=== PATIENT | male | born 1960 | race Caucasian/White ===

== ENCOUNTER 2017-12-16 06:55 | Inpatient (IN) ==
[2017-12-11 16:39] LABS: Basophils % 0.7 % (0.0-0.8); Eosinophils # 0.3 10*3/uL (0.0-0.87); Eosinophils % 4.8 % (0.00-10.9); Hematocrit 37.1 VOL% (42.0-52.0); Hemoglobin 12.7 GM/DL (14.0-18.0); Immature Granulocytes % 0.4 %; Immature Granulocytes Absolute 0.02 #; Lymphocytes # 1.3 10*3/uL (1.4-4.0); Lymphocytes % 23.6 % (21.2-54.2); Mean Corpuscular HGB Conc 34.2 GM/DL (32-36); Mean Corpuscular Hemoglobin 29 PG (27-34); Mean Corpuscular Volume 84.7 FL (87-102); Mean Platelet Volume 11.5 FL (9.6-12.0); Monocytes # 0.5 10*3/uL (0.11-0.8); Monocytes % 8.9 % (1.7-12.7); Neutrophils # 3.3 10*3/uL (1.4-7.4); Neutrophils % 61.6 % (38.7-73.9); Platelet Count 186 T/CUMM (130-400); Red Blood Count 4.38 MC/CUMM (3.8-5.5); Red Cell Distribution Width 15.3 % (9.3-17.3); White Blood Count 5.4 T/CUMM (4-12)
[2017-12-11 16:50] LABS: Albumin 4.1 G/DL (3.4-5.0); Bilirubin,Total 0.6 MG/DL (0.2-1.0); Calcium 9.4 MG/DL (8.5-10.1); Osmolality,Calculated 273.8 MOS/KG (273-304); Potassium 4.4 MMOL/L (3.5-5.1); Total Protein 7.8 G/DL (6.4-8.3)
[~2017-12-16 06:55] MED LIST: ceFAZolin 1,000 MG in SYRINGE 1 EACH IV ONE
[2017-12-16] MEDS ORDERED: DIAZEPAM 5 MG TABLET PO ONE (08:01)
[2017-12-16] MEDS ORDERED: FAMOTIDINE 20 MG TABLET PO ONE (08:01)
[2017-12-16] MEDS ORDERED: ceFAZolin 1,000 MG VIAL ONE (08:12)
[2017-12-16] MEDS ORDERED: DIAZEPAM 5 MG TABLET ONE (08:13)
[2017-12-16] MEDS ORDERED: FAMOTIDINE 20 MG TABLET ONE (08:13)
[2017-12-16] MEDS: LACTATED RINGERS 1,000 ML IV SCH ×3 (08:34→17:27)
[2017-12-16] MEDS ORDERED: HEPARIN 5,000 UNIT/1 ML VIAL ONE (09:27)
[2017-12-16] MEDS ORDERED: LIDOCAINE 1% 20 ML VIAL ONE (09:27)
[2017-12-16] MEDS ORDERED: THROMBIN TOPICAL (RECOMBINANT) 5,000 UNIT VIAL TOP ONE (09:27)
[2017-12-16] MEDS ORDERED: HYDROmorphone 2 MG/1 ML VIAL IV PRN (12:19)
[2017-12-16] MEDS ORDERED: ONDANSETRON 4 MG/2 ML VIAL IV PRN (12:19)
[2017-12-16] MEDS ORDERED: fentaNYL 100 MCG/2 ML VIAL ONE (12:37)
[2017-12-16] MEDS ORDERED: MIDAZOLAM 2 MG/2 ML VIAL ONE (12:37)
[2017-12-16] MEDS ORDERED: ONDANSETRON 4 MG/2 ML VIAL ONE (12:37)
[2017-12-16] MEDS ORDERED: SEVOFLURANE 1 UNIT/15 MINUTE INH ONE (12:37)
[2017-12-16] MEDS ORDERED: LIDOCAINE 1% 5 ML VIAL ONE (12:37)
[2017-12-16] MEDS ORDERED: PROPOFOL 200 MG/20 ML VIAL IV ONE (12:37)
[2017-12-16] MEDS ORDERED: ACETAMINOPHEN 1,000 MG/100 ML VIAL IV ONE (12:38)
[2017-12-16] MEDS ORDERED: ROCURONIUM 100 MG/10 ML VIAL IV ONE (12:38)
[2017-12-16] MEDS ORDERED: GLYCOPYRROLATE 0.4 MG/2 ML VIAL ONE (12:38)
[2017-12-16] MEDS ORDERED: hydrALAZINE 20 MG/1 ML VIAL ONE (12:49)
[2017-12-16] MEDS ORDERED: hydrALAZINE 20 MG/1 ML VIAL IV ONE (12:54)
[2017-12-16 14:47] LABS: Apearance,Urine CLEAR (Clear); Bilirubin,Urine Negative (Negative); Blood, Urine Negative (Negative); Glucose,Urine (UA) Negative (Negative); Hyaline Casts,Urine 3 /LPF (0-3); Ketones,Urine Negative (Negative); Mucus,Urine Moderate /LPF (Occasional); Nitrite,Urine Negative (Negative); Protein,Urine Negative; RBC,Urine 1 /HPF (0-4); Squamous Epithelial Cell,Urine Occasional /HPF (0-10); Urine Color Yellow (Yellow); Urine Specific Gravity 1.009 (1.001-1.035); Urine Urobilinogen < 2.0 EU/DL (0.2-1.0); WBC,Urine 1 /HPF (0-6)
[2017-12-16] MEDS ORDERED: oxyCODONE/ACETAMINOPHEN 5-325 MG TABLET PO PRN (16:25)
[2017-12-16] MEDS: ASPIRIN CHEW 81 MG TABLET PO SCH (17:08)
[2017-12-16] MEDS: oxyCODONE/ACETAMINOPHEN 5-325 MG TABLET PO PRN ×2 (17:09→21:53)
[2017-12-16] MEDS: CLOPIDOGREL 75 MG TABLET PO SCH (17:10)
[2017-12-16] MEDS: CARVEDILOL 3.125 MG TABLET PO SCH (21:53)
[2017-12-16] MEDS: CILOSTAZOL 50 MG TABLET PO SCH (21:53)
[2017-12-17] MEDS: LACTATED RINGERS 1,000 ML IV SCH ×3 (03:06→09:42)
[2017-12-17 06:51] LABS: Calcium 8.3 MG/DL (8.5-10.1); Osmolality,Calculated 275.5 MOS/KG (273-304)
[2017-12-17] MEDS: ASPIRIN CHEW 81 MG TABLET PO SCH (08:21)
[2017-12-17] MEDS: CARVEDILOL 3.125 MG TABLET PO SCH (08:21)
[2017-12-17] MEDS: CILOSTAZOL 50 MG TABLET PO SCH (08:21)
[2017-12-17] MEDS: CLOPIDOGREL 75 MG TABLET PO SCH (08:22)
[2017-12-17] MEDS ORDERED: amLODIPine 5 MG TABLET PO SCH (09:00)
[2017-12-17] MEDS ORDERED: LOSARTAN 50 MG TABLET PO SCH (09:00)
[2017-12-17] MEDS ORDERED: PANTOPRAZOLE 40 MG TABLET PO SCH (09:00)
[2017-12-17] MEDS ORDERED: ATORVASTATIN 40 MG TABLET PO SCH (09:00)
[2017-12-17 15:48] VITALS: BP 131/50
== END 2017-12-17 17:30 | disposition home or self-care (01) | DRG 254 ==
LOC: N.OR 06:55 → N.SDSINP 06:56 → N.2E 13:57
PROVIDERS: ADMIT Surgery; ATTEND Surgery

== ENCOUNTER 2018-01-13 13:32 | Inpatient (IN) ==
[2018-01-20 17:27] VITALS: BP 125/52
== END 2018-01-20 17:01 | disposition home health service (06) | DRG 858 ==
LOC: N.3E 14:05
PROVIDERS: ADMIT Surgery; ATTEND Surgery

== ENCOUNTER 2018-05-20 14:39 | Inpatient (IN) ==
[2018-05-20] MEDS ORDERED: VANCOMYCIN 1,000 MG VIAL ONE (14:48)
[2018-05-20] MEDS ORDERED: FAMOTIDINE 20 MG TABLET PO ONE (15:07)
[2018-05-20] MEDS ORDERED: LACTATED RINGERS 1,000 ML IV SCH (15:30)
[2018-05-20 15:56] LABS: Basophils # 0.1 10*3/uL (0.0-0.2); Basophils % 0.9 % (0.0-0.8); Eosinophils # 0.5 10*3/uL (0.0-0.87); Eosinophils % 6.5 % (0.00-10.9); Hematocrit 36.6 VOL% (42.0-52.0); Immature Granulocytes % 0.4 %; Immature Granulocytes Absolute 0.03 #; Lymphocytes # 1.8 10*3/uL (1.4-4.0); Lymphocytes % 23.1 % (21.2-54.2); Mean Corpuscular HGB Conc 32.8 GM/DL (32-36); Mean Corpuscular Hemoglobin 28 PG (27-34); Mean Corpuscular Volume 84.7 FL (87-102); Monocytes # 0.6 10*3/uL (0.11-0.8); Neutrophils # 4.9 10*3/uL (1.4-7.4); Neutrophils % 61.1 % (38.7-73.9); Platelet Count 216 T/CUMM (130-400); Red Blood Count 4.32 MC/CUMM (3.8-5.5); Red Cell Distribution Width 14.5 % (9.3-17.3)
[2018-05-20 16:06] LABS: PT Patient Result 10.2 SECS; Partial Thromboplastin Time 31.3 SECS (0-40)
[2018-05-20 16:21] LABS: Alanine Aminotransferase 23 U/L (16-61); Albumin 3.9 G/DL (3.4-5.0); Alkaline Phosphatase 67 U/L (45-117); Aspartate Amino Transferase 22 U/L (0-37); Bilirubin,Total < 0.39 MG/DL (0.2-1.0); Blood Urea Nitrogen 24 MG/DL (7-18); Calcium 9.3 MG/DL (8.5-10.1); Glucose 80 MG/DL (74-106); Osmolality,Calculated 277.7 MOS/KG (273-304); Potassium 4.5 MMOL/L (3.5-5.1); Sodium 138 MMOL/L (136-145); Total Protein 7.3 G/DL (6.4-8.3)
[2018-05-20] MEDS ORDERED: ACETAMINOPHEN 325 MG TABLET PO PRN (16:25)
[2018-05-20] MEDS ORDERED: ONDANSETRON 4 MG/2 ML VIAL IV PRN (16:25)
[2018-05-20] MEDS: VANCOMYCIN INJ 1,000 MG in SODIUM CHLORIDE 0.9% 250 ML IV SCH (18:05)
[2018-05-20] MEDS: ATORVASTATIN 40 MG TABLET PO SCH (20:41)
[2018-05-20] MEDS: SULFAMETHOX/TRIMETHOPRIM 800-160 MG TABLET PO SCH (20:41)
[2018-05-20] MEDS: CARVEDILOL 3.125 MG TABLET PO SCH (20:41)
[2018-05-20] MEDS: CILOSTAZOL 100 MG TABLET PO SCH (20:41)
[2018-05-21] MEDS: VANCOMYCIN INJ 1,000 MG in SODIUM CHLORIDE 0.9% 250 ML IV SCH ×2 (05:07→21:06)
[2018-05-21] MEDS: CARVEDILOL 3.125 MG TABLET PO SCH ×2 (09:57→21:08)
[2018-05-21] MEDS: METOPROLOL TARTRATE 100 MG TABLET PO SCH (09:57)
[2018-05-21] MEDS: LOSARTAN 50 MG TABLET PO SCH (09:57)
[2018-05-21] MEDS: amLODIPine 2.5 MG TABLET PO SCH (09:57)
[2018-05-21] MEDS: CILOSTAZOL 100 MG TABLET PO SCH ×2 (09:58→21:07)
[2018-05-21] MEDS: PANTOPRAZOLE 40 MG TABLET PO SCH (09:58)
[2018-05-21] MEDS: SULFAMETHOX/TRIMETHOPRIM 800-160 MG TABLET PO SCH ×2 (09:58→21:07)
[2018-05-21] MEDS: ASPIRIN CHEW 81 MG TABLET PO SCH (09:58)
[2018-05-21] MEDS ORDERED: FAMOTIDINE 20 MG TABLET ONE (10:01)
[2018-05-21] MEDS ORDERED: LIDOCAINE 1% 20 ML VIAL ONE (15:01)
[2018-05-21] MEDS ORDERED: THROMBIN TOPICAL (RECOMBINANT) 5,000 UNIT VIAL TOP ONE (15:01)
[2018-05-21] MEDS ORDERED: HEPARIN 5,000 UNIT/1 ML VIAL ONE (15:40)
[2018-05-21] MEDS ORDERED: HYDROmorphone 2 MG/1 ML VIAL IV PRN ×2 (18:18)
[2018-05-21] MEDS ORDERED: KETOROLAC 10 MG TABLET PO PRN (18:18)
[2018-05-21] MEDS ORDERED: PROPOFOL 200 MG/20 ML VIAL IV ONE (18:36)
[2018-05-21] MEDS ORDERED: fentaNYL 100 MCG/2 ML VIAL ONE (18:36)
[2018-05-21] MEDS ORDERED: MIDAZOLAM 2 MG/2 ML VIAL ONE (18:36)
[2018-05-21] MEDS ORDERED: SEVOFLURANE 1 UNIT/15 MINUTE INH ONE (18:36)
[2018-05-21] MEDS ORDERED: GLYCOPYRROLATE 0.4 MG/2 ML VIAL ONE (18:37)
[2018-05-21] MEDS ORDERED: PHENYLEPHRINE 1 MG/10 ML SYRINGE IV ONE (18:37)
[2018-05-21] MEDS: ATORVASTATIN 40 MG TABLET PO SCH (21:07)
[2018-05-21] MEDS: LACTATED RINGERS 1,000 ML IV SCH (21:08)
[2018-05-22] MEDS: LACTATED RINGERS 1,000 ML IV SCH (05:24)
[2018-05-22 06:14] LABS: Basophils # 0.1 10*3/uL (0.0-0.2); Basophils % 1.1 % (0.0-0.8); Eosinophils # 0.4 10*3/uL (0.0-0.87); Eosinophils % 7.7 % (0.00-10.9); Hematocrit 30.6 VOL% (42.0-52.0); Hemoglobin 10.1 GM/DL (14.0-18.0); Immature Granulocytes % 0.9 %; Immature Granulocytes Absolute 0.05 #; Lymphocytes # 1.2 10*3/uL (1.4-4.0); Mean Corpuscular Hemoglobin 28 PG (27-34); Mean Corpuscular Volume 83.6 FL (87-102); Mean Platelet Volume 11.4 FL (9.6-12.0); Monocytes # 0.5 10*3/uL (0.11-0.8); Monocytes % 8.7 % (1.7-12.7); Neutrophils # 3.3 10*3/uL (1.4-7.4); Neutrophils % 59.6 % (38.7-73.9); Platelet Count 150 T/CUMM (130-400); Red Blood Count 3.66 MC/CUMM (3.8-5.5); Red Cell Distribution Width 14.8 % (9.3-17.3); White Blood Count 5.5 T/CUMM (4-12)
[2018-05-22] MEDS: CARVEDILOL 3.125 MG TABLET PO SCH ×2 (09:33→21:09)
[2018-05-22] MEDS: amLODIPine 2.5 MG TABLET PO SCH (09:33)
[2018-05-22] MEDS: CILOSTAZOL 100 MG TABLET PO SCH ×2 (09:33→21:09)
[2018-05-22] MEDS: ASPIRIN CHEW 81 MG TABLET PO SCH (09:33)
[2018-05-22] MEDS: PANTOPRAZOLE 40 MG TABLET PO SCH (09:33)
[2018-05-22] MEDS: LOSARTAN 50 MG TABLET PO SCH (09:33)
[2018-05-22] MEDS: SULFAMETHOX/TRIMETHOPRIM 800-160 MG TABLET PO SCH ×2 (09:33→21:08)
[2018-05-22] MEDS: METOPROLOL TARTRATE 100 MG TABLET PO SCH (09:33)
[2018-05-22] MEDS: VANCOMYCIN INJ 1,000 MG in SODIUM CHLORIDE 0.9% 250 ML IV SCH ×2 (09:34→21:09)
[2018-05-22] MEDS: FONDAPARINUX 2.5 MG/0.5 ML SYRINGE SUBCUT SCH (12:18)
[2018-05-22] MEDS: ATORVASTATIN 40 MG TABLET PO SCH (21:08)
[2018-05-23 05:00] LABS: Basophils % 0.4 % (0.0-0.8); Eosinophils # 0.5 10*3/uL (0.0-0.87); Eosinophils % 9.3 % (0.00-10.9); Hematocrit 26.7 VOL% (42.0-52.0); Hemoglobin 8.8 GM/DL (14.0-18.0); Immature Granulocytes % 0.4 %; Immature Granulocytes Absolute 0.02 #; Lymphocytes # 1.2 10*3/uL (1.4-4.0); Lymphocytes % 21.3 % (21.2-54.2); Mean Corpuscular Hemoglobin 28 PG (27-34); Mean Corpuscular Volume 84.2 FL (87-102); Mean Platelet Volume 12.8 FL (9.6-12.0); Monocytes # 0.6 10*3/uL (0.11-0.8); Monocytes % 10.6 % (1.7-12.7); Neutrophils # 3.3 10*3/uL (1.4-7.4); Platelet Count 155 T/CUMM (130-400); Red Blood Count 3.17 MC/CUMM (3.8-5.5); Red Cell Distribution Width 14.5 % (9.3-17.3); White Blood Count 5.6 T/CUMM (4-12)
[2018-05-23] MEDS: LOSARTAN 50 MG TABLET PO SCH (10:31)
[2018-05-23] MEDS: PANTOPRAZOLE 40 MG TABLET PO SCH (10:31)
[2018-05-23] MEDS: amLODIPine 2.5 MG TABLET PO SCH (10:32)
[2018-05-23] MEDS: CILOSTAZOL 100 MG TABLET PO SCH ×2 (10:32→21:14)
[2018-05-23] MEDS: ASPIRIN CHEW 81 MG TABLET PO SCH (10:32)
[2018-05-23] MEDS: SULFAMETHOX/TRIMETHOPRIM 800-160 MG TABLET PO SCH ×2 (10:32→21:15)
[2018-05-23] MEDS: METOPROLOL TARTRATE 100 MG TABLET PO SCH (10:32)
[2018-05-23] MEDS: CARVEDILOL 3.125 MG TABLET PO SCH ×2 (10:32→21:15)
[2018-05-23] MEDS: FONDAPARINUX 2.5 MG/0.5 ML SYRINGE SUBCUT SCH (12:19)
[2018-05-23] MEDS: VANCOMYCIN INJ 1,000 MG in SODIUM CHLORIDE 0.9% 250 ML IV SCH (15:26)
[2018-05-23] MEDS: ATORVASTATIN 40 MG TABLET PO SCH (21:15)
[2018-05-24 06:14] LABS: Osmolality,Calculated 270.1 MOS/KG (273-304); Potassium 4.4 MMOL/L (3.5-5.1)
[2018-05-24] MEDS: CARVEDILOL 3.125 MG TABLET PO SCH ×2 (09:37→21:12)
[2018-05-24] MEDS: LOSARTAN 50 MG TABLET PO SCH (09:37)
[2018-05-24] MEDS: CILOSTAZOL 100 MG TABLET PO SCH ×2 (09:37→21:12)
[2018-05-24] MEDS: SULFAMETHOX/TRIMETHOPRIM 800-160 MG TABLET PO SCH ×2 (09:38→21:12)
[2018-05-24] MEDS: ASPIRIN CHEW 81 MG TABLET PO SCH (09:38)
[2018-05-24] MEDS: amLODIPine 2.5 MG TABLET PO SCH (09:38)
[2018-05-24] MEDS: METOPROLOL TARTRATE 100 MG TABLET PO SCH (09:38)
[2018-05-24] MEDS: PANTOPRAZOLE 40 MG TABLET PO SCH (09:38)
[2018-05-24] MEDS: VANCOMYCIN INJ 1,000 MG in SODIUM CHLORIDE 0.9% 250 ML IV SCH (09:39)
[2018-05-24] MEDS: FONDAPARINUX 2.5 MG/0.5 ML SYRINGE SUBCUT SCH (12:48)
[2018-05-24] MEDS: ATORVASTATIN 40 MG TABLET PO SCH (21:12)
[2018-05-25] MEDS: VANCOMYCIN INJ 1,000 MG in SODIUM CHLORIDE 0.9% 250 ML IV SCH ×2 (04:04→21:00)
[2018-05-25 06:14] LABS: Calcium 8.9 MG/DL (8.5-10.1); Osmolality,Calculated 276.7 MOS/KG (273-304); Potassium 4.2 MMOL/L (3.5-5.1)
[2018-05-25] MEDS: ASPIRIN CHEW 81 MG TABLET PO SCH (09:19)
[2018-05-25] MEDS: CARVEDILOL 3.125 MG TABLET PO SCH ×2 (09:20→21:00)
[2018-05-25] MEDS: amLODIPine 2.5 MG TABLET PO SCH (09:20)
[2018-05-25] MEDS: CILOSTAZOL 100 MG TABLET PO SCH ×2 (09:20→21:00)
[2018-05-25] MEDS: PANTOPRAZOLE 40 MG TABLET PO SCH (09:20)
[2018-05-25] MEDS: LOSARTAN 50 MG TABLET PO SCH (09:20)
[2018-05-25] MEDS: SULFAMETHOX/TRIMETHOPRIM 800-160 MG TABLET PO SCH ×2 (09:20→21:00)
[2018-05-25] MEDS: METOPROLOL TARTRATE 100 MG TABLET PO SCH (09:21)
[2018-05-25] MEDS: FONDAPARINUX 2.5 MG/0.5 ML SYRINGE SUBCUT SCH (11:36)
[2018-05-25] MEDS: ATORVASTATIN 40 MG TABLET PO SCH (21:00)
[2018-05-26] MEDS: SULFAMETHOX/TRIMETHOPRIM 800-160 MG TABLET PO SCH (10:35)
[2018-05-26] MEDS: CILOSTAZOL 100 MG TABLET PO SCH (10:35)
[2018-05-26] MEDS: CARVEDILOL 3.125 MG TABLET PO SCH (10:35)
[2018-05-26] MEDS: ASPIRIN CHEW 81 MG TABLET PO SCH (10:35)
[2018-05-26] MEDS: PANTOPRAZOLE 40 MG TABLET PO SCH (10:36)
[2018-05-26] MEDS: LOSARTAN 50 MG TABLET PO SCH (15:59)
[2018-05-26] MEDS: METOPROLOL TARTRATE 100 MG TABLET PO SCH (15:59)
[2018-05-26] MEDS: amLODIPine 2.5 MG TABLET PO SCH (16:00)
[2018-05-26] MEDS: FONDAPARINUX 2.5 MG/0.5 ML SYRINGE SUBCUT SCH (16:11)
[2018-05-26 16:17] VITALS: BP 167/62
== END 2018-05-26 17:44 | disposition home health service (06) | DRG 254 ==
LOC: N.OR 14:39 → N.3E 14:43 → N.SDSINP 14:43 → N.3E 16:25 → EDSTATUS 16:30 → N.OR 17:31
PROVIDERS: ADMIT Surgery; ATTEND Surgery

== ENCOUNTER 2019-03-22 13:33 | Inpatient (IN) ==
[2019-03-22] MEDS: ATROPINE 1 MG/10 ML SYRINGE IV PRN ×2 (14:20→14:35)
[2019-03-22 14:30] LABS: Basophils # 0.1 10*3/uL (0.0-0.2); Basophils % 0.6 % (0.0-0.8); Eosinophils # 0.2 10*3/uL (0.0-0.87); Eosinophils % 2.4 % (0.00-10.9); Hemoglobin 12.2 GM/DL (14.0-18.0); Immature Granulocytes % 0.3 %; Immature Granulocytes Absolute 0.03 #; Lymphocytes # 1.8 10*3/uL (1.4-4.0); Lymphocytes % 20.7 % (21.2-54.2); Mean Corpuscular HGB Conc 33.9 GM/DL (32-36); Mean Corpuscular Volume 87.8 FL (87-102); Mean Platelet Volume 12.4 FL (9.6-12.0); Monocytes % 10.7 % (1.7-12.7); Neutrophils % 65.3 % (38.7-73.9); Platelet Count 207 T/CUMM (130-400); Red Cell Distribution Width 14.2 % (9.3-17.3); White Blood Count 8.9 T/CUMM (4-12)
[2019-03-22 14:40] LABS: INR 0.9; PT Patient Result 9.9 SECS (9.6-12.2); Partial Thromboplastin Time 31.3 SECS (20.8-36.0)
[2019-03-22 14:58] LABS: Albumin 3.8 G/DL (3.4-5.0); Bilirubin,Total 0.8 MG/DL (0.2-1.0); Osmolality,Calculated 274.2 MOS/KG (273-304); Thyroid Stimulating Hormone 29.3 uIU/ml (0.358-3.74); Total Protein 6.9 G/DL (6.4-8.3)
[2019-03-22] MEDS ORDERED: MORPHINE 4 MG/1 ML VIAL IV PRN (15:14)
[2019-03-22] MEDS ORDERED: MAGNESIUM SULF RIDER 4 GM in PREMIX 1 EACH IV PRN (15:14)
[2019-03-22] MEDS ORDERED: POTASSIUM CHLORIDE 20 MEQ TABLET PO PRN (15:14)
[2019-03-22] MEDS ORDERED: ONDANSETRON 4 MG/2 ML VIAL IV PRN (15:14)
[2019-03-22] MEDS ORDERED: MAGNESIUM SULF RIDER 2 GM in PREMIX 1 EACH IV PRN ×3 (15:14→18:51)
[2019-03-22] MEDS: SODIUM CHLORIDE 0.45% 1,000 ML IV SCH (16:12)
[2019-03-22] MEDS: ENOXAPARIN 40 MG/0.4 ML SYRINGE SUBCUT SCH (16:43)
[2019-03-22] MEDS ORDERED: hydrALAZINE 20 MG/1 ML VIAL IV PRN (17:34)
[2019-03-22] MEDS ORDERED: POTASSIUM CHLORIDE RIDER 10 MEQ in PREMIX 1 EACH IV PRN ×2 (18:50→18:51)
[2019-03-22] MEDS: CILOSTAZOL 50 MG TABLET PO SCH (20:16)
[2019-03-23 04:16] LABS: Basophils # 0.1 10*3/uL (0.0-0.2); Basophils % 0.8 % (0.0-0.8); Eosinophils # 0.3 10*3/uL (0.0-0.87); Eosinophils % 4.2 % (0.00-10.9); Hematocrit 34.4 VOL% (42.0-52.0); Hemoglobin 11.4 GM/DL (14.0-18.0); Immature Granulocytes % 0.3 %; Immature Granulocytes Absolute 0.02 #; Lymphocytes # 1.8 10*3/uL (1.4-4.0); Lymphocytes % 27.2 % (21.2-54.2); Mean Corpuscular HGB Conc 33.1 GM/DL (32-36); Mean Corpuscular Volume 89.4 FL (87-102); Mean Platelet Volume 12.8 FL (9.6-12.0); Monocytes % 9.7 % (1.7-12.7); Neutrophils % 57.8 % (38.7-73.9); Platelet Count 180 T/CUMM (130-400); Red Blood Count 3.85 MC/CUMM (3.8-5.5); Red Cell Distribution Width 14.3 % (9.3-17.3); White Blood Count 6.5 T/CUMM (4-12)
[2019-03-23 04:19] LABS: PT Patient Result 10.4 SECS (9.6-12.2)
[2019-03-23 04:28] LABS: Calcium 8.7 MG/DL (8.5-10.1)
[2019-03-23 04:51] LABS: Risk Ratio 2.02; VLDL CHOLESTEROL 22.6 MG/DL
[2019-03-23] MEDS ORDERED: diphenhydrAMINE CAP 25 MG CAPSULE PO ONE (06:00)
[2019-03-23] MEDS ORDERED: DIAZEPAM 5 MG TABLET PO ONE (06:00)
[2019-03-23] MEDS: SODIUM CHLORIDE 0.45% 1,000 ML IV SCH ×2 (08:54→12:39)
[2019-03-23] MEDS ORDERED: amLODIPine 2.5 MG TABLET PO SCH (09:00)
[2019-03-23] MEDS: ASPIRIN CHEW 81 MG TABLET PO SCH (09:44)
[2019-03-23] MEDS: LOSARTAN 50 MG TABLET PO SCH (09:45)
[2019-03-23] MEDS: ATORVASTATIN 40 MG TABLET PO SCH (09:45)
[2019-03-23] MEDS: CILOSTAZOL 50 MG TABLET PO SCH ×2 (09:45→21:21)
[2019-03-23] MEDS: PANTOPRAZOLE 40 MG TABLET PO SCH (09:45)
[2019-03-23] MEDS ORDERED: ceFAZolin 1,000 MG VIAL IRRIG ONE (10:54)
[2019-03-23] MEDS ORDERED: ceFAZolin 1,000 MG in SYRINGE 1 EACH IV ONE (10:54)
[2019-03-23] MEDS ORDERED: LIDOCAINE 1% 20 ML VIAL ONE (15:03)
[2019-03-23] MEDS ORDERED: HEPARIN/NACL 0.9% 2 UNITS/ML 500 ML IV ONE (15:03)
[2019-03-23] MEDS ORDERED: MIDAZOLAM 2 MG/2 ML VIAL ONE (15:46)
[2019-03-23] MEDS ORDERED: fentaNYL 100 MCG/2 ML VIAL ONE (15:46)
[2019-03-23] MEDS ORDERED: TISSUE ADHESIVE 1 EACH APPLICATOR TOP ONE (17:24)
[2019-03-23] MEDS ORDERED: oxyCODONE/ACETAMINOPHEN 5-325 MG TABLET PO PRN (17:46)
[2019-03-23] MEDS ORDERED: ACETAMINOPHEN 325 MG TABLET PO PRN (17:46)
[2019-03-23] MEDS: ENOXAPARIN 40 MG/0.4 ML SYRINGE SUBCUT SCH (20:08)
[2019-03-23] MEDS: ceFAZolin 1,000 MG in SYRINGE 1 EACH IV SCH (22:29)
[2019-03-24] MEDS: METOPROLOL TARTRATE 5 MG/5 ML VIAL IV SCH ×2 (01:53→03:23)
[2019-03-24 04:50] LABS: Basophils % 0.3 % (0.0-0.8); Eosinophils # 0.2 10*3/uL (0.0-0.87); Eosinophils % 2.6 % (0.00-10.9); Hematocrit 35.9 VOL% (42.0-52.0); Hemoglobin 11.6 GM/DL (14.0-18.0); Immature Granulocytes % 0.5 %; Immature Granulocytes Absolute 0.03 #; Lymphocytes % 15.9 % (21.2-54.2); Mean Corpuscular HGB Conc 32.3 GM/DL (32-36); Monocytes % 9.5 % (1.7-12.7); Neutrophils % 71.2 % (38.7-73.9); Platelet Count 165 T/CUMM (130-400); Red Blood Count 3.99 MC/CUMM (3.8-5.5); Red Cell Distribution Width 14.1 % (9.3-17.3); White Blood Count 6.6 T/CUMM (4-12)
[2019-03-24 05:18] LABS: Calcium 8.8 MG/DL (8.5-10.1); Osmolality,Calculated 281.7 MOS/KG (273-304)
[2019-03-24] MEDS ORDERED: METOPROLOL TARTRATE 100 MG TABLET PO SCH (09:00)
[2019-03-24] MEDS ORDERED: amLODIPine 2.5 MG TABLET PO SCH (09:00)
[2019-03-24] MEDS ORDERED: METOPROLOL TARTRATE 50 MG TABLET PO SCH (09:00)
[2019-03-24] MEDS: ASPIRIN CHEW 81 MG TABLET PO SCH (09:23)
[2019-03-24] MEDS: CILOSTAZOL 50 MG TABLET PO SCH (09:23)
[2019-03-24] MEDS: LOSARTAN 50 MG TABLET PO SCH (09:24)
[2019-03-24] MEDS: ATORVASTATIN 40 MG TABLET PO SCH (09:24)
[2019-03-24] MEDS: PANTOPRAZOLE 40 MG TABLET PO SCH (09:24)
[2019-03-24] MEDS ORDERED: ceFAZolin 1,000 MG in SYRINGE 1 EACH IV SCH (10:00)
[2019-03-24] MEDS: ceFAZolin 1,000 MG in SYRINGE 1 EACH IV SCH (10:55)
[2019-03-24 11:33] VITALS: BP 129/73
== END 2019-03-24 11:20 | disposition home or self-care (01) | DRG 243 ==
LOC: N.ED 13:33 → N.EDINP 15:14 → N.CC 16:09 → N.TELES 03-23 18:06
PROVIDERS: ADMIT Internal Medicine Cardiovascular Disease; ATTEND Internal Medicine Cardiovascular Disease

== ENCOUNTER 2019-06-08 06:59 | Inpatient (IN) ==
[2019-06-02 14:22] LABS: Basophils % 0.6 % (0.0-0.8); Eosinophils # 0.4 10*3/uL (0.0-0.87); Eosinophils % 5.1 % (0.00-10.9); Hematocrit 37.3 VOL% (42.0-52.0); Hemoglobin 12.3 GM/DL (14.0-18.0); Lymphocytes % 27.6 % (21.2-54.2); Mean Corpuscular Volume 85.2 FL (87-102); Mean Platelet Volume 12.4 FL (9.6-12.0); Monocytes % 7.3 % (1.7-12.7); Neutrophils % 59.4 % (38.7-73.9); Platelet Count 171 T/CUMM (130-400); Red Blood Count 4.38 MC/CUMM (3.8-5.5); Red Cell Distribution Width 13.4 % (9.3-17.3); White Blood Count 7.1 T/CUMM (4-12)
[2019-06-02 14:42] LABS: Albumin 3.8 G/DL (3.4-5.0); Bilirubin,Total 0.6 MG/DL (0.2-1.0); Total Protein 7.1 G/DL (6.4-8.3)
[~2019-06-08 06:59] MED LIST changes: +DIAZEPAM 5 MG TABLET ONE; +DIAZEPAM 5 MG TABLET PO ONE; +FAMOTIDINE 20 MG TABLET ONE; +FAMOTIDINE 20 MG TABLET PO ONE; +VANCOMYCIN 500 MG VIAL ONE; +VANCOMYCIN INJ 500 MG in SODIUM CHLORIDE 0.9% 100 ML IV ONE; -ceFAZolin 1,000 MG in SYRINGE 1 EACH IV ONE
[2019-06-08] MEDS: LACTATED RINGERS 1,000 ML IV SCH ×3 (07:56→23:45)
[2019-06-08] MEDS ORDERED: LIDOCAINE 1% 20 ML VIAL ONE (09:15)
[2019-06-08] MEDS ORDERED: VANCOMYCIN 500 MG VIAL ONE (09:15)
[2019-06-08] MEDS ORDERED: BUPIVACAINE 0.5% 50 ML VIAL ONE (09:15)
[2019-06-08] MEDS ORDERED: HEPARIN 5,000 UNIT/1 ML VIAL ONE (09:15)
[2019-06-08] MEDS ORDERED: ONDANSETRON 4 MG/2 ML VIAL IV PRN (12:55)
[2019-06-08] MEDS ORDERED: PROPOFOL 200 MG/20 ML VIAL IV ONE (13:19)
[2019-06-08] MEDS ORDERED: PHENYLEPHRINE DRIP 20 MG/250 ML PREMIX IV ONE (13:19)
[2019-06-08] MEDS ORDERED: DESFLURANE 1 UNIT/15 MINUTE INH ONE (13:19)
[2019-06-08] MEDS ORDERED: HEPARIN 10,000 UNIT/10 ML VIAL ONE (13:19)
[2019-06-08] MEDS ORDERED: fentaNYL 100 MCG/2 ML VIAL ONE (13:19)
[2019-06-08] MEDS ORDERED: LIDOCAINE 2% 5 ML VIAL ONE (13:19)
[2019-06-08] MEDS ORDERED: ROCURONIUM 100 MG/10 ML VIAL IV ONE (13:20)
[2019-06-08] MEDS ORDERED: ETOMIDATE 40 MG/20 ML VIAL IV ONE (13:20)
[2019-06-08] MEDS ORDERED: PHENYLEPHRINE 1 MG/10 ML SYRINGE IV ONE (13:43)
[2019-06-08 13:48] LABS: Hematocrit 30.9 VOL% (42.0-52.0); Hemoglobin 9.4 GM/DL (14.0-18.0)
[2019-06-08] MEDS ORDERED: PHENYLEPHRINE DRIP 40 MG/250 ML PREMIX IV ONE (14:00)
[2019-06-08] MEDS ORDERED: ALBUMIN 5% 12.5 GM/250 ML VIAL IV ONE (14:00)
[2019-06-08] MEDS ORDERED: PHENYLEPHRINE DRIP 40 MG/250 ML PREMIX IV PRN (14:05)
[2019-06-08] MEDS ORDERED: ALBUMIN 5% 12.5 GM in PREMIX 1 EACH IV ONE (14:05)
[2019-06-08] MEDS ORDERED: HYDROmorphone 2 MG/1 ML VIAL ONE (15:39)
[2019-06-08] MEDS: HYDROmorphone 2 MG/1 ML VIAL IV PRN ×3 (15:39→20:44)
[2019-06-08 16:41] LABS: Troponin I < 0.015 NG/ML (0.00-0.045)
[2019-06-08] MEDS: DOCUSATE SODIUM 100 MG CAPSULE PO SCH (22:25)
[2019-06-09] MEDS: HYDROmorphone 2 MG/1 ML VIAL IV PRN ×5 (00:38→14:44)
[2019-06-09] MEDS: LACTATED RINGERS 1,000 ML IV SCH ×2 (04:59→08:03)
[2019-06-09 05:27] LABS: Hematocrit 18.9 VOL% (42.0-52.0)
[2019-06-09 05:42] LABS: Osmolality,Calculated 274.1 MOS/KG (273-304)
[2019-06-09 05:55] LABS: Hemoglobin 6.1 GM/DL (14.0-18.0)
[2019-06-09] MEDS ORDERED: ENOXAPARIN 40 MG/0.4 ML SYRINGE SUBCUT SCH (06:00)
[2019-06-09] MEDS ORDERED: SODIUM CHLORIDE 0.9% 1,000 ML IV PRN (06:16)
[2019-06-09] MEDS: amLODIPine 2.5 MG TABLET PO SCH ×2 (07:57→08:04)
[2019-06-09] MEDS: DOCUSATE SODIUM 100 MG CAPSULE PO SCH ×3 (07:58→20:22)
[2019-06-09] MEDS: CLOPIDOGREL 75 MG TABLET PO SCH ×2 (07:58→08:05)
[2019-06-09] MEDS: LOSARTAN 50 MG TABLET PO SCH ×2 (07:58→08:04)
[2019-06-09] MEDS: METOPROLOL TARTRATE 100 MG TABLET PO SCH ×3 (07:58→20:23)
[2019-06-09] MEDS: ATORVASTATIN 40 MG TABLET PO SCH ×2 (07:58→08:04)
[2019-06-09] MEDS: ASPIRIN CHEW 81 MG TABLET PO SCH ×2 (07:58→08:04)
[2019-06-09] MEDS ORDERED: oxyCODONE/ACETAMINOPHEN 5-325 MG TABLET PO PRN (16:38)
[2019-06-09 17:35] LABS: Hemoglobin 9.3 GM/DL (14.0-18.0)
[2019-06-10] MEDS: oxyCODONE/ACETAMINOPHEN 5-325 MG TABLET PO PRN ×3 (03:21→22:09)
[2019-06-10 06:19] LABS: Calcium 8.2 MG/DL (8.5-10.1)
[2019-06-10 06:44] LABS: Basophils % 0.2 % (0.0-0.8); Eosinophils % 0.1 % (0.00-10.9); Hematocrit 26.8 VOL% (42.0-52.0); Immature Granulocytes % 0.8 %; Lymphocytes # 0.8 10*3/uL (1.4-4.0); Lymphocytes % 6.3 % (21.2-54.2); Mean Corpuscular HGB Conc 33.6 GM/DL (32-36); Mean Corpuscular Volume 83.5 FL (87-102); Mean Platelet Volume 12.3 FL (9.6-12.0); Monocytes % 4.9 % (1.7-12.7); Neutrophils % 87.7 % (38.7-73.9); Red Blood Count 3.21 MC/CUMM (3.8-5.5); Red Cell Distribution Width 14.6 % (9.3-17.3); White Blood Count 12.4 T/CUMM (4-12)
[2019-06-10 06:46] LABS: Platelet Count 85 T/CUMM (130-400)
[2019-06-10 07:10] LABS: Hypochromasia 1+; Ovalocytes Slight; Platelet Estimate Decreased
[2019-06-10] MEDS: METOPROLOL TARTRATE 100 MG TABLET PO SCH ×2 (08:43→21:15)
[2019-06-10] MEDS: amLODIPine 2.5 MG TABLET PO SCH (08:44)
[2019-06-10] MEDS: ASPIRIN CHEW 81 MG TABLET PO SCH ×2 (08:44→08:45)
[2019-06-10] MEDS: ATORVASTATIN 40 MG TABLET PO SCH (08:44)
[2019-06-10] MEDS: CLOPIDOGREL 75 MG TABLET PO SCH (08:44)
[2019-06-10] MEDS: DOCUSATE SODIUM 100 MG CAPSULE PO SCH ×2 (08:45→21:16)
[2019-06-10] MEDS: LOSARTAN 50 MG TABLET PO SCH (08:45)
[2019-06-11] MEDS: CLOPIDOGREL 75 MG TABLET PO SCH (09:14)
[2019-06-11] MEDS: ASPIRIN CHEW 81 MG TABLET PO SCH (09:14)
[2019-06-11] MEDS: DOCUSATE SODIUM 100 MG CAPSULE PO SCH ×2 (09:14→21:02)
[2019-06-11] MEDS: ATORVASTATIN 40 MG TABLET PO SCH (09:14)
[2019-06-11] MEDS: amLODIPine 2.5 MG TABLET PO SCH (09:15)
[2019-06-11] MEDS: LOSARTAN 50 MG TABLET PO SCH (09:15)
[2019-06-11] MEDS: METOPROLOL TARTRATE 100 MG TABLET PO SCH ×2 (09:15→21:02)
[2019-06-11] MEDS ORDERED: BISACODYL 5 MG TABLET PO ONE (09:15)
[2019-06-11] MEDS ORDERED: BISACODYL 5 MG TABLET PO PRN (09:17)
[2019-06-11] MEDS: METOCLOPRAMIDE 10 MG TABLET PO SCH ×2 (11:25→17:20)
[2019-06-11] MEDS: KETOROLAC 10 MG TABLET PO SCH ×2 (12:34→17:20)
[2019-06-12] MEDS: KETOROLAC 10 MG TABLET PO SCH ×2 (00:23→06:19)
[2019-06-12 08:22] VITALS: BP 112/29
[2019-06-12] MEDS: CLOPIDOGREL 75 MG TABLET PO SCH (08:59)
[2019-06-12] MEDS: METOCLOPRAMIDE 10 MG TABLET PO SCH (08:59)
[2019-06-12] MEDS: DOCUSATE SODIUM 100 MG CAPSULE PO SCH (08:59)
[2019-06-12] MEDS: ATORVASTATIN 40 MG TABLET PO SCH (08:59)
[2019-06-12] MEDS: ASPIRIN CHEW 81 MG TABLET PO SCH (09:00)
[2019-06-12] MEDS: METOPROLOL TARTRATE 100 MG TABLET PO SCH (09:02)
[2019-06-12] MEDS: LOSARTAN 50 MG TABLET PO SCH (09:02)
[2019-06-12] MEDS: amLODIPine 2.5 MG TABLET PO SCH (09:02)
== END 2019-06-12 10:45 | disposition home or self-care (01) | DRG 253 ==
LOC: N.SDSINP 06:59 → N.ICU 18:09 → N.3E 06-09 16:12
PROVIDERS: ADMIT Surgery; ATTEND Surgery

== ENCOUNTER 2019-12-18 16:48 | Inpatient (IN) ==
[2019-12-18 17:55] LABS: Basophils # 0.1 10*3/uL (0.0-0.2); Basophils % 0.5 % (0.0-0.8); Eosinophils # 0.2 10*3/uL (0.0-0.87); Eosinophils % 1.9 % (0.00-10.9); Hematocrit 39.1 VOL% (42.0-52.0); Hemoglobin 12.4 GM/DL (14.0-18.0); Immature Granulocytes % 0.4 %; Immature Granulocytes Absolute 0.04 #; Lymphocytes # 1.4 10*3/uL (1.4-4.0); Lymphocytes % 13.4 % (21.2-54.2); Mean Corpuscular HGB Conc 31.7 GM/DL (32-36); Mean Corpuscular Volume 89.1 FL (87-102); Mean Platelet Volume 11.9 FL (9.6-12.0); Monocytes % 4.9 % (1.7-12.7); Neutrophils % 78.9 % (38.7-73.9); Platelet Count 284 T/CUMM (130-400); Red Blood Count 4.39 MC/CUMM (3.8-5.5); Red Cell Distribution Width 15.2 % (9.3-17.3); White Blood Count 10.6 T/CUMM (4-12)
[2019-12-18 18:11] LABS: Albumin 4.1 G/DL (3.4-5.0); Bilirubin,Total 2.3 MG/DL (0.2-1.0); Calcium 9.8 MG/DL (8.5-10.1); Osmolality,Calculated 274.2 MOS/KG (273-304); Total Protein 8.3 G/DL (6.4-8.3)
[2019-12-18] MEDS ORDERED: DEXTROSE 50% 25 GM/50 ML VIAL IV PRN (20:42)
[2019-12-18] MEDS ORDERED: GLUCAGON 1 MG VIAL IM PRN (20:42)
[2019-12-18] MEDS ORDERED: ONDANSETRON 4 MG/2 ML VIAL IV PRN (20:47)
[2019-12-18] MEDS ORDERED: ACETAMINOPHEN 325 MG TABLET PO PRN (20:47)
[2019-12-18] MEDS ORDERED: SODIUM CHLORIDE 0.9% 1,000 ML IV STA (20:47)
[2019-12-18] MEDS ORDERED: NICOTINE 21 MG/24 HR PATCH TRANSDERM PRN (20:47)
[2019-12-18] MEDS ORDERED: MEPERIDINE 25 MG/1 ML VIAL IV PRN (20:58)
[2019-12-18 21:16] LABS: VLDL CHOLESTEROL 18.2 MG/DL
[2019-12-18] MEDS: SODIUM CHLORIDE 0.9% 1,000 ML IV SCH (22:42)
[2019-12-18] MEDS: PANTOPRAZOLE 40 MG VIAL IV SCH (22:42)
[2019-12-19 02:33] LABS: Albumin 4.2 G/DL (3.4-5.0); Bilirubin,Direct 1.51 MG/DL (0.0-0.20); Bilirubin,Indirect 0.9 MG/DL (0.0-1.0); Bilirubin,Total 2.4 MG/DL (0.2-1.0); Total Protein 8.3 G/DL (6.4-8.3)
[2019-12-19 04:03] LABS: Hepatitis B Core IgM Quant 0.19 Index; Hepatitis B Surface Ag Quant 0.27 Index; Hepatitis B Surface Ag Result Negative (Negative); Hepatitis C Virus Ab Quant 0.13 Index; Hepatitis C Virus Ab Result Negative (Negative)
[2019-12-19 05:47] LABS: Basophils % 0.4 % (0.0-0.8); Eosinophils # 0.1 10*3/uL (0.0-0.87); Eosinophils % 1.1 % (0.00-10.9); Hematocrit 33.6 VOL% (42.0-52.0); Hemoglobin 10.9 GM/DL (14.0-18.0); Immature Granulocytes % 0.3 %; Immature Granulocytes Absolute 0.02 #; Lymphocytes # 1.1 10*3/uL (1.4-4.0); Lymphocytes % 14.9 % (21.2-54.2); Mean Corpuscular HGB Conc 32.4 GM/DL (32-36); Mean Platelet Volume 11.8 FL (9.6-12.0); Neutrophils % 76.3 % (38.7-73.9); Platelet Count 214 T/CUMM (130-400); Red Blood Count 3.82 MC/CUMM (3.8-5.5); Red Cell Distribution Width 15.1 % (9.3-17.3); White Blood Count 7.3 T/CUMM (4-12)
[2019-12-19 06:22] LABS: Bilirubin,Total 3.1 MG/DL (0.2-1.0); Osmolality,Calculated 283.4 MOS/KG (273-304)
[2019-12-19] MEDS ORDERED: chlordiazePOXIDE 10 MG CAPSULE PO PRN (07:45)
[2019-12-19] MEDS: PANTOPRAZOLE 40 MG VIAL IV SCH ×2 (08:49→21:37)
[2019-12-19] MEDS: SODIUM CHLORIDE 0.9% 1,000 ML IV SCH ×2 (13:50→21:37)
[2019-12-20] MEDS: SODIUM CHLORIDE 0.9% 1,000 ML IV SCH ×4 (00:22→22:05)
[2019-12-20 06:19] LABS: Basophils % 0.6 % (0.0-0.8); Eosinophils # 0.2 10*3/uL (0.0-0.87); Eosinophils % 3.7 % (0.00-10.9); Hematocrit 32.2 VOL% (42.0-52.0); Hemoglobin 10.2 GM/DL (14.0-18.0); Immature Granulocytes % 0.4 %; Immature Granulocytes Absolute 0.02 #; Lymphocytes # 1.4 10*3/uL (1.4-4.0); Lymphocytes % 26.6 % (21.2-54.2); Mean Corpuscular HGB Conc 31.7 GM/DL (32-36); Mean Corpuscular Volume 89.2 FL (87-102); Mean Platelet Volume 12.2 FL (9.6-12.0); Monocytes % 6.9 % (1.7-12.7); Neutrophils % 61.8 % (38.7-73.9); Platelet Count 192 T/CUMM (130-400); Red Blood Count 3.61 MC/CUMM (3.8-5.5); Red Cell Distribution Width 14.9 % (9.3-17.3); White Blood Count 5.2 T/CUMM (4-12)
[2019-12-20 06:42] LABS: Albumin 2.6 G/DL (3.4-5.0); Bilirubin,Direct 1.19 MG/DL (0.0-0.20); Bilirubin,Indirect 1.5 MG/DL (0.0-1.0); Bilirubin,Total 2.7 MG/DL (0.2-1.0); Total Protein 6.2 G/DL (6.4-8.3)
[2019-12-20] MEDS: PANTOPRAZOLE 40 MG VIAL IV SCH ×2 (08:58→21:15)
[2019-12-20] MEDS: hydrALAZINE 20 MG/1 ML VIAL IV PRN (21:55)
[2019-12-21 06:02] LABS: Basophils % 0.6 % (0.0-0.8); Eosinophils # 0.2 10*3/uL (0.0-0.87); Eosinophils % 3.5 % (0.00-10.9); Hematocrit 32.1 VOL% (42.0-52.0); Hemoglobin 10.4 GM/DL (14.0-18.0); Immature Granulocytes % 0.3 %; Immature Granulocytes Absolute 0.02 #; Lymphocytes # 1.4 10*3/uL (1.4-4.0); Lymphocytes % 21.7 % (21.2-54.2); Mean Corpuscular HGB Conc 32.4 GM/DL (32-36); Mean Corpuscular Volume 86.5 FL (87-102); Mean Platelet Volume 11.8 FL (9.6-12.0); Monocytes % 6.3 % (1.7-12.7); Neutrophils % 67.6 % (38.7-73.9); Platelet Count 193 T/CUMM (130-400); Red Blood Count 3.71 MC/CUMM (3.8-5.5); Red Cell Distribution Width 14.8 % (9.3-17.3); White Blood Count 6.4 T/CUMM (4-12)
[2019-12-21 06:29] LABS: Albumin 2.6 G/DL (3.4-5.0); Calcium 8.5 MG/DL (8.5-10.1); Osmolality,Calculated 273.7 MOS/KG (273-304); Total Protein 6.2 G/DL (6.4-8.3)
[2019-12-21] MEDS: SODIUM CHLORIDE 0.9% 1,000 ML IV SCH ×3 (06:30→22:06)
[2019-12-21] MEDS: PANTOPRAZOLE 40 MG VIAL IV SCH ×2 (09:05→22:05)
[2019-12-21] MEDS: POTASSIUM CHLORIDE RIDER 10 MEQ in PREMIX 1 EACH IV PRN ×3 (13:22→17:19)
[2019-12-22] MEDS: SODIUM CHLORIDE 0.9% 1,000 ML IV SCH ×3 (05:06→20:42)
[2019-12-22 05:46] LABS: Basophils % 0.7 % (0.0-0.8); Eosinophils # 0.2 10*3/uL (0.0-0.87); Hematocrit 31.5 VOL% (42.0-52.0); Hemoglobin 10.1 GM/DL (14.0-18.0); Immature Granulocytes % 0.3 %; Immature Granulocytes Absolute 0.02 #; Lymphocytes # 1.3 10*3/uL (1.4-4.0); Lymphocytes % 22.7 % (21.2-54.2); Mean Corpuscular HGB Conc 32.1 GM/DL (32-36); Mean Corpuscular Volume 87.7 FL (87-102); Mean Platelet Volume 11.5 FL (9.6-12.0); Monocytes % 7.3 % (1.7-12.7); Platelet Count 193 T/CUMM (130-400); Red Blood Count 3.59 MC/CUMM (3.8-5.5); Red Cell Distribution Width 14.5 % (9.3-17.3); White Blood Count 5.8 T/CUMM (4-12)
[2019-12-22 06:06] LABS: Albumin 2.5 G/DL (3.4-5.0); Bilirubin,Total 1.2 MG/DL (0.2-1.0); Calcium 8.3 MG/DL (8.5-10.1); Osmolality,Calculated 272.7 MOS/KG (273-304); Total Protein 5.7 G/DL (6.4-8.3)
[2019-12-22] MEDS: POTASSIUM CHLORIDE RIDER 10 MEQ in PREMIX 1 EACH IV PRN ×3 (07:20→09:36)
[2019-12-22] MEDS: PANTOPRAZOLE 40 MG VIAL IV SCH ×2 (08:31→23:00)
[2019-12-23] MEDS: hydrALAZINE 20 MG/1 ML VIAL IV PRN (03:27)
[2019-12-23 05:32] LABS: Basophils % 0.6 % (0.0-0.8); Eosinophils # 0.2 10*3/uL (0.0-0.87); Eosinophils % 2.9 % (0.00-10.9); Hematocrit 32.6 VOL% (42.0-52.0); Hemoglobin 10.6 GM/DL (14.0-18.0); Immature Granulocytes % 0.3 %; Immature Granulocytes Absolute 0.02 #; Lymphocytes # 1.1 10*3/uL (1.4-4.0); Lymphocytes % 16.8 % (21.2-54.2); Mean Corpuscular HGB Conc 32.5 GM/DL (32-36); Mean Corpuscular Volume 86.2 FL (87-102); Mean Platelet Volume 11.4 FL (9.6-12.0); Monocytes % 6.6 % (1.7-12.7); Neutrophils % 72.8 % (38.7-73.9); Platelet Count 224 T/CUMM (130-400); Red Blood Count 3.78 MC/CUMM (3.8-5.5); Red Cell Distribution Width 14.1 % (9.3-17.3); White Blood Count 6.6 T/CUMM (4-12)
[2019-12-23 05:49] LABS: INR 1.1; PT Patient Result 11.8 SECS (9.8-11.9)
[2019-12-23 05:55] LABS: Albumin 2.5 G/DL (3.4-5.0); Bilirubin,Total 1.5 MG/DL (0.2-1.0); Calcium 8.4 MG/DL (8.5-10.1); Osmolality,Calculated 270.8 MOS/KG (273-304); Total Protein 5.9 G/DL (6.4-8.3)
[2019-12-23] MEDS ORDERED: ROCURONIUM 100 MG/10 ML VIAL IV ONE (08:00)
[2019-12-23] MEDS ORDERED: propofoL 200 MG/20 ML VIAL IV ONE (08:00)
[2019-12-23] MEDS ORDERED: INDOMETHACIN SUPP 50 MG SUPP RECTAL ONE ×2 (08:00→10:07)
[2019-12-23] MEDS ORDERED: SUCCINYLCHOLINE 200 MG/10 ML VIAL ONE (08:00)
[2019-12-23] MEDS ORDERED: PHENYLEPHRINE 1 MG/10 ML SYRINGE IV ONE (08:00)
[2019-12-23] MEDS ORDERED: LIDOCAINE 2% 5 ML VIAL ONE (08:00)
[2019-12-23] MEDS: SODIUM CHLORIDE 0.9% 1,000 ML IV SCH ×2 (08:13→12:31)
[2019-12-23] MEDS: PANTOPRAZOLE 40 MG VIAL IV SCH ×2 (08:54→20:55)
[2019-12-23] MEDS ORDERED: MAGNESIUM SULF RIDER 4 GM in PREMIX 1 EACH IV PRN (09:21)
[2019-12-23] MEDS ORDERED: MAGNESIUM SULF RIDER 2 GM in PREMIX 1 EACH IV PRN (09:21)
[2019-12-23] MEDS: LACTATED RINGERS 1,000 ML IV SCH (09:30)
[2019-12-23] MEDS ORDERED: MIDAZOLAM 2 MG/2 ML VIAL ONE (11:34)
[2019-12-23] MEDS ORDERED: fentaNYL 100 MCG/2 ML VIAL ONE (11:34)
[2019-12-23] MEDS: POTASSIUM CHLORIDE RIDER 10 MEQ in PREMIX 1 EACH IV PRN ×3 (12:31→16:25)
[2019-12-23] MEDS ORDERED: METOPROLOL TARTRATE 50 MG TABLET PO ONE (12:40)
[2019-12-23] MEDS ORDERED: COLCHICINE 0.6 MG CAPSULE PO ONE (15:31)
[2019-12-23] MEDS: METOPROLOL TARTRATE 50 MG TABLET PO SCH (20:55)
[2019-12-24] MEDS: SODIUM CHLORIDE 0.9% 1,000 ML IV SCH ×4 (00:50→23:44)
[2019-12-24] MEDS ORDERED: cefOXitin 2,000 MG in SYRINGE 1 EACH IV ONE (06:00)
[2019-12-24 06:01] LABS: Basophils % 0.5 % (0.0-0.8); Eosinophils # 0.2 10*3/uL (0.0-0.87); Eosinophils % 2.4 % (0.00-10.9); Hematocrit 30.9 VOL% (42.0-52.0); Hemoglobin 10.2 GM/DL (14.0-18.0); Immature Granulocytes % 0.3 %; Immature Granulocytes Absolute 0.02 #; Lymphocytes # 1.2 10*3/uL (1.4-4.0); Lymphocytes % 15.4 % (21.2-54.2); Mean Corpuscular Volume 86.1 FL (87-102); Neutrophils % 76.4 % (38.7-73.9); Platelet Count 178 T/CUMM (130-400); Red Blood Count 3.59 MC/CUMM (3.8-5.5); Red Cell Distribution Width 14.4 % (9.3-17.3); White Blood Count 7.8 T/CUMM (4-12)
[2019-12-24 06:22] LABS: Albumin 2.4 G/DL (3.4-5.0); Bilirubin,Total 1.8 MG/DL (0.2-1.0); Calcium 8.5 MG/DL (8.5-10.1); Total Protein 5.8 G/DL (6.4-8.3)
[2019-12-24] MEDS: METOPROLOL TARTRATE 50 MG TABLET PO SCH ×3 (06:42→21:50)
[2019-12-24] MEDS ORDERED: TISSUE ADHESIVE 1 EACH APPLICATOR TOP ONE (06:43)
[2019-12-24] MEDS ORDERED: BUPIVACAINE MPF 0.25% 30 ML VIAL ONE (06:44)
[2019-12-24] MEDS ORDERED: LIDOCAINE 1%/EPI INJ 20 ML VIAL ONE (06:44)
[2019-12-24] MEDS ORDERED: propofoL 200 MG/20 ML VIAL IV ONE (09:57)
[2019-12-24] MEDS ORDERED: LIDOCAINE 2% 5 ML VIAL ONE (09:57)
[2019-12-24] MEDS ORDERED: SEVOFLURANE 1 UNIT/15 MINUTE INH ONE (09:57)
[2019-12-24] MEDS ORDERED: MIDAZOLAM 2 MG/2 ML VIAL ONE (09:58)
[2019-12-24] MEDS ORDERED: DEXAMETHASONE 4 MG/1 ML VIAL ONE (09:58)
[2019-12-24] MEDS ORDERED: ONDANSETRON 4 MG/2 ML VIAL ONE ×2 (09:58→10:05)
[2019-12-24] MEDS ORDERED: ePHEDrine 50 MG/ML VIAL ONE (09:58)
[2019-12-24] MEDS ORDERED: GLYCOPYRROLATE 0.4 MG/2 ML VIAL ONE (09:58)
[2019-12-24] MEDS ORDERED: hydrALAZINE 20 MG/1 ML VIAL ONE (09:58)
[2019-12-24] MEDS ORDERED: fentaNYL 100 MCG/2 ML VIAL ONE (09:58)
[2019-12-24] MEDS ORDERED: PHENYLEPHRINE 1 MG/10 ML SYRINGE IV ONE (09:59)
[2019-12-24] MEDS ORDERED: NEOSTIGMINE 10 MG/10 ML VIAL ONE (09:59)
[2019-12-24] MEDS ORDERED: ROCURONIUM 100 MG/10 ML VIAL IV ONE (09:59)
[2019-12-24] MEDS ORDERED: LACTATED RINGERS 1,000 ML IV ONE (09:59)
[2019-12-24] MEDS ORDERED: SUCCINYLCHOLINE 200 MG/10 ML VIAL ONE (09:59)
[2019-12-24] MEDS ORDERED: ONDANSETRON 4 MG/2 ML VIAL IV PRN (10:02)
[2019-12-24] MEDS ORDERED: MEPERIDINE 25 MG/1 ML VIAL IV PRN (10:02)
[2019-12-24] MEDS ORDERED: MEPERIDINE 25 MG/1 ML VIAL ONE (10:05)
[2019-12-24] MEDS: PANTOPRAZOLE 40 MG VIAL IV SCH ×2 (11:10→22:05)
[2019-12-24] MEDS ORDERED: KETOROLAC 30 MG/1 ML VIAL IV ONE (13:10)
[2019-12-24] MEDS ORDERED: HYDROmorphone 2 MG/1 ML VIAL IV PRN (14:27)
[2019-12-24] MEDS ORDERED: ALBUTEROL/IPRATROPIUM 3 ML NEB RESP TX PRN (14:27)
[2019-12-24] MEDS: HYDROmorphone 2 MG/1 ML VIAL IV PRN (15:46)
[2019-12-24] MEDS ORDERED: cefOXitin 2,000 MG in SYRINGE 1 EACH IV SCH (18:00)
[2019-12-24] MEDS: LACTATED RINGERS 1,000 ML IV SCH (20:24)
[2019-12-24] MEDS: oxyCODONE/ACETAMINOPHEN 5-325 MG TABLET PO PRN (21:50)
[2019-12-25] MEDS: oxyCODONE/ACETAMINOPHEN 5-325 MG TABLET PO PRN ×3 (03:00→21:10)
[2019-12-25] MEDS: SODIUM CHLORIDE 0.9% 1,000 ML IV SCH (05:57)
[2019-12-25 06:48] LABS: Albumin 2.5 G/DL (3.4-5.0); Bilirubin,Total 1.4 MG/DL (0.2-1.0); Calcium 8.5 MG/DL (8.5-10.1); Osmolality,Calculated 267.2 MOS/KG (273-304); Total Protein 6.3 G/DL (6.4-8.3)
[2019-12-25 07:44] LABS: Basophils % 0.1 % (0.0-0.8); Eosinophils % 0.4 % (0.00-10.9); Hematocrit 33.3 VOL% (42.0-52.0); Hemoglobin 10.7 GM/DL (14.0-18.0); Immature Granulocytes % 0.5 %; Immature Granulocytes Absolute 0.05 #; Lymphocytes # 1.2 10*3/uL (1.4-4.0); Mean Corpuscular HGB Conc 32.1 GM/DL (32-36); Mean Corpuscular Volume 87.6 FL (87-102); Mean Platelet Volume 11.7 FL (9.6-12.0); Monocytes % 7.3 % (1.7-12.7); Neutrophils % 78.7 % (38.7-73.9); Platelet Count 223 T/CUMM (130-400); White Blood Count 9.4 T/CUMM (4-12)
[2019-12-25] MEDS: METOPROLOL TARTRATE 50 MG TABLET PO SCH ×2 (09:41→21:02)
[2019-12-25] MEDS: PANTOPRAZOLE 40 MG VIAL IV SCH (09:42)
[2019-12-25] MEDS: LACTATED RINGERS 1,000 ML IV SCH (11:44)
[2019-12-25] MEDS: cefOXitin 2,000 MG in SYRINGE 1 EACH IV SCH ×2 (11:45→16:51)
[2019-12-25] MEDS: HYDROmorphone 2 MG/1 ML VIAL IV PRN ×2 (12:04→17:15)
[2019-12-25] MEDS: hydrALAZINE 20 MG/1 ML VIAL IV PRN ×2 (12:34→23:48)
[2019-12-25] MEDS: PANTOPRAZOLE 40 MG TABLET PO SCH (21:02)
[2019-12-26 06:31] LABS: Albumin 2.6 G/DL (3.4-5.0); Bilirubin,Total 0.6 MG/DL (0.2-1.0); Calcium 8.9 MG/DL (8.5-10.1); Osmolality,Calculated 268.1 MOS/KG (273-304); Total Protein 6.3 G/DL (6.4-8.3)
[2019-12-26 08:14] VITALS: BP 154/48
[2019-12-26] MEDS: METOPROLOL TARTRATE 50 MG TABLET PO SCH (09:36)
[2019-12-26] MEDS: PANTOPRAZOLE 40 MG TABLET PO SCH (09:36)
[2019-12-26] MEDS: hydrALAZINE 20 MG/1 ML VIAL IV PRN (12:16)
[2019-12-26] MEDS: oxyCODONE/ACETAMINOPHEN 5-325 MG TABLET PO PRN (13:38)
== END 2019-12-26 15:24 | disposition home or self-care (01) | DRG 416 ==
LOC: N.ED 16:48 → N.EDINP 16:48 → SUATTDRO 20:59 → N.3E 21:32
PROVIDERS: ADMIT Internal Medicine; ATTEND Internal Medicine
PROC: ERCPWSP (ICD-10-PCS; 2019-12-23 11:35)
PROC: LAPCHOL (2019-12-24 07:11)

== ENCOUNTER 2020-03-22 06:50 | Inpatient (IN) ==
[2020-03-16 14:42] LABS: Basophils % 0.5 % (0.0-0.8); Eosinophils # 0.1 10*3/uL (0.0-0.87); Eosinophils % 1.8 % (0.00-10.9); Hematocrit 31.8 VOL% (42.0-52.0); Hemoglobin 10.2 GM/DL (14.0-18.0); Immature Granulocytes % 0.5 %; Immature Granulocytes Absolute 0.03 #; Lymphocytes # 1.5 10*3/uL (1.4-4.0); Lymphocytes % 22.7 % (21.2-54.2); Mean Corpuscular HGB Conc 32.1 GM/DL (32-36); Mean Corpuscular Volume 87.4 FL (87-102); Mean Platelet Volume 11.1 FL (9.6-12.0); Neutrophils % 68.5 % (38.7-73.9); Platelet Count 183 T/CUMM (130-400); Red Blood Count 3.64 MC/CUMM (3.8-5.5); Red Cell Distribution Width 15.5 % (9.3-17.3); White Blood Count 6.7 T/CUMM (4-12)
[2020-03-16 15:14] LABS: PT Patient Result 10.4 SECS (9.8-11.9); Partial Thromboplastin Time 34.1 SECS (23.9-33.8)
[~2020-03-22 06:50] MED LIST changes: -DIAZEPAM 5 MG TABLET ONE; -DIAZEPAM 5 MG TABLET PO ONE; -FAMOTIDINE 20 MG TABLET ONE; -FAMOTIDINE 20 MG TABLET PO ONE; +LACTATED RINGERS 1,000 ML IV SCH; -VANCOMYCIN 500 MG VIAL ONE; -VANCOMYCIN INJ 500 MG in SODIUM CHLORIDE 0.9% 100 ML IV ONE; +ceFAZolin 1,000 MG VIAL ONE; +ceFAZolin 1,000 MG in SYRINGE 1 EACH IV ONE
[2020-03-22] MEDS ORDERED: HEPARIN 5,000 UNIT/1 ML VIAL ONE ×2 (07:06→07:53)
[2020-03-22] MEDS ORDERED: BUPIVACAINE 0.5% 50 ML VIAL ONE (07:07)
[2020-03-22] MEDS ORDERED: FAMOTIDINE 20 MG TABLET PO ONE (07:09)
[2020-03-22] MEDS ORDERED: DIAZEPAM 5 MG TABLET PO ONE (07:09)
[2020-03-22] MEDS ORDERED: DIAZEPAM 5 MG TABLET ONE (07:15)
[2020-03-22] MEDS ORDERED: FAMOTIDINE 20 MG TABLET ONE (07:15)
[2020-03-22] MEDS ORDERED: TISSUE ADHESIVE 1 EACH APPLICATOR TOP ONE (10:14)
[2020-03-22] MEDS ORDERED: ONDANSETRON 4 MG/2 ML VIAL IV PRN (11:04)
[2020-03-22] MEDS ORDERED: oxyCODONE/ACETAMINOPHEN 5-325 MG TABLET PO PRN ×2 (11:07)
[2020-03-22] MEDS ORDERED: LIDOCAINE 2% 5 ML VIAL ONE (11:16)
[2020-03-22] MEDS ORDERED: propofoL 200 MG/20 ML VIAL IV ONE (11:16)
[2020-03-22] MEDS ORDERED: PHENYLEPHRINE DRIP 20 MG/250 ML PREMIX IV ONE (11:16)
[2020-03-22] MEDS ORDERED: fentaNYL 100 MCG/2 ML VIAL ONE (11:16)
[2020-03-22] MEDS ORDERED: DESFLURANE 1 UNIT/15 MINUTE INH ONE (11:16)
[2020-03-22] MEDS ORDERED: GLYCOPYRROLATE 0.4 MG/2 ML VIAL ONE (11:17)
[2020-03-22] MEDS ORDERED: MIDAZOLAM 2 MG/2 ML VIAL ONE (11:17)
[2020-03-22] MEDS ORDERED: ePHEDrine 50 MG/ML VIAL ONE (11:17)
[2020-03-22] MEDS ORDERED: KETOROLAC 30 MG/1 ML VIAL ONE (11:17)
[2020-03-22] MEDS ORDERED: ROCURONIUM 100 MG/10 ML VIAL IV ONE (11:17)
[2020-03-22] MEDS ORDERED: HEPARIN 10,000 UNIT/10 ML VIAL ONE (11:17)
[2020-03-22] MEDS ORDERED: NEOSTIGMINE 10 MG/10 ML VIAL ONE (11:17)
[2020-03-22] MEDS: LACTATED RINGERS 1,000 ML IV SCH (12:20)
[2020-03-22] MEDS: KETOROLAC 10 MG TABLET PO SCH (17:15)
[2020-03-22] MEDS: PANTOPRAZOLE 40 MG TABLET PO SCH (20:37)
[2020-03-23] MEDS: KETOROLAC 10 MG TABLET PO SCH ×4 (01:00→17:14)
[2020-03-23 05:56] LABS: Hematocrit 26.2 VOL% (42.0-52.0); Hemoglobin 8.5 GM/DL (14.0-18.0)
[2020-03-23] MEDS ORDERED: ENOXAPARIN 40 MG/0.4 ML SYRINGE SUBCUT SCH (06:00)
[2020-03-23 06:16] LABS: Calcium 8.5 MG/DL (8.5-10.1)
[2020-03-23] MEDS: LACTATED RINGERS 1,000 ML IV SCH ×3 (07:57→13:18)
[2020-03-23] MEDS: PANTOPRAZOLE 40 MG TABLET PO SCH (08:08)
[2020-03-23] MEDS ORDERED: FUROSEMIDE 40 MG TABLET PO SCH (09:00)
[2020-03-23] MEDS ORDERED: METOPROLOL TARTRATE 100 MG TABLET PO SCH (09:00)
[2020-03-23] MEDS ORDERED: CLOPIDOGREL 75 MG TABLET PO SCH ×2 (09:00)
[2020-03-23] MEDS ORDERED: LOSARTAN 50 MG TABLET PO SCH (09:00)
[2020-03-23] MEDS ORDERED: ASPIRIN CHEW 81 MG TABLET PO SCH ×2 (09:00)
[2020-03-23] MEDS ORDERED: ATORVASTATIN 40 MG TABLET PO SCH (09:00)
[2020-03-23 16:02] VITALS: BP 149/43
== END 2020-03-23 17:37 | disposition home or self-care (01) | DRG 254 ==
LOC: N.SDSINP 06:50 → N.4E 12:03
PROVIDERS: ADMIT Surgery; ATTEND Surgery

== ENCOUNTER 2021-02-17 11:26 | Observation (INO) ==
[2021-02-17 11:58] LABS: Basophils % 0.4 % (0.0-0.8); Eosinophils # 0.2 10*3/uL (0.0-0.87); Eosinophils % 2.1 % (0.00-10.9); Hematocrit 33.6 VOL% (42.0-52.0); Immature Granulocytes % 0.3 %; Immature Granulocytes Absolute 0.02 #; Lymphocytes # 1.3 10*3/uL (1.4-4.0); Lymphocytes % 18.4 % (21.2-54.2); Mean Corpuscular HGB Conc 32.7 GM/DL (32-36); Mean Corpuscular Volume 85.3 FL (87-102); Mean Platelet Volume 10.4 FL (9.6-12.0); Monocytes % 7.2 % (1.7-12.7); Neutrophils % 71.6 % (38.7-73.9); Platelet Count 306 T/CUMM (130-400); Red Blood Count 3.94 MC/CUMM (3.8-5.5); White Blood Count 7.1 T/CUMM (4-12)
[2021-02-17 12:12] LABS: PT Patient Result 10.8 SECS (10.5-12.0); Partial Thromboplastin Time 32.9 SECS (23.9-33.8)
[2021-02-17 12:24] LABS: Albumin 3.8 G/DL (3.4-5.0); Bilirubin,Total 0.5 MG/DL (0.20-1.00); Potassium 3.5 MMOL/L (3.5-5.1); Total Protein 7.2 G/DL (6.4-8.2)
[2021-02-17] MEDS ORDERED: NITROGLYCERIN 2% OINT 1 INCH/GM PACK TOP STA (12:51)
[2021-02-17] MEDS ORDERED: NITROGLYCERIN SL 0.4 MG TABLET SL PRN (12:51)
[2021-02-17] MEDS ORDERED: ASPIRIN 325 MG TABLET PO STA (12:51)
[2021-02-17] MEDS ORDERED: ENOXAPARIN 60 MG/0.6 ML SYRINGE SUBCUT STA (13:57)
[2021-02-17] MEDS ORDERED: POTASSIUM CHLORIDE 20 MEQ TABLET PO PRN (14:19)
[2021-02-17] MEDS ORDERED: ACETAMINOPHEN 325 MG TABLET PO PRN (14:19)
[2021-02-17] MEDS ORDERED: ALUMINUM/MAGNES/SIMETH MAX STR 30 ML UDCUP PO PRN (14:19)
[2021-02-17] MEDS ORDERED: hydrALAZINE 20 MG/1 ML VIAL IV PRN (14:19)
[2021-02-17] MEDS ORDERED: ONDANSETRON 4 MG/2 ML VIAL IV PRN (14:19)
[2021-02-17] MEDS ORDERED: diphenhydrAMINE CAP 25 MG CAPSULE PO PRN (14:19)
[2021-02-17] MEDS ORDERED: DOCUSATE SODIUM 100 MG CAPSULE PO PRN (14:19)
[2021-02-17] MEDS ORDERED: MAGNESIUM SULF RIDER 2 GM/50 ML PREMIX IV PRN ×2 (14:19→14:21)
[2021-02-17] MEDS ORDERED: MAGNESIUM SULF RIDER 4 GM/100 ML PREMIX IV PRN (14:19)
[2021-02-17] MEDS ORDERED: ZALEPLON 5 MG CAPSULE PO PRN (14:19)
[2021-02-17] MEDS ORDERED: guaiFENesin/DM ER 600-30 MG TABLET PO PRN (14:19)
[2021-02-17] MEDS ORDERED: PROMETHAZINE 25 MG TABLET PO PRN (14:19)
[2021-02-17] MEDS ORDERED: DIAZEPAM 5 MG TABLET PO ONE (14:21)
[2021-02-17] MEDS ORDERED: diphenhydrAMINE CAP 25 MG CAPSULE PO ONE (14:21)
[2021-02-17] MEDS ORDERED: POTASSIUM CHLORIDE RIDER 10 MEQ/100 ML PREMIX IV PRN (14:21)
[2021-02-17] MEDS ORDERED: HEPARIN/NACL 0.9% 2 UNITS/ML 2,000 UNIT/1,000 ML BAG IV ONE (15:04)
[2021-02-17] MEDS ORDERED: LIDOCAINE 1% 20 ML VIAL ONE (15:04)
[2021-02-17] MEDS ORDERED: NITROGLYCERIN DRIP 50 MG/250 ML BOTTLE IV ONE (15:09)
[2021-02-17] MEDS ORDERED: VERAPAMIL 5 MG/2 ML VIAL ONE (15:09)
[2021-02-17] MEDS ORDERED: fentaNYL 100 MCG/2 ML VIAL ONE (15:09)
[2021-02-17] MEDS ORDERED: MIDAZOLAM 2 MG/2 ML VIAL ONE ×2 (15:09→15:24)
[2021-02-17] MEDS ORDERED: HEPARIN 5,000 UNIT/1 ML VIAL ONE (15:32)
[2021-02-17] MEDS ORDERED: CLOPIDOGREL 300 MG TABLET ONE (15:54)
[2021-02-17] MEDS: SODIUM CHLORIDE 0.9% 1,000 ML IV SCH (16:33)
[2021-02-17 17:40] LABS: INR 1.1; PT Patient Result 11.8 SECS (10.5-12.0)
[2021-02-17 18:13] LABS: Partial Thromboplastin Time > 211.8 SECS (23.9-33.8)
[2021-02-17] MEDS: METOPROLOL TARTRATE 25 MG TABLET PO SCH (22:11)
[2021-02-18] MEDS: SODIUM CHLORIDE 0.9% 1,000 ML IV SCH ×2 (00:54→08:26)
[2021-02-18 06:18] LABS: Basophils % 0.4 % (0.0-0.8); Eosinophils # 0.2 10*3/uL (0.0-0.87); Eosinophils % 2.7 % (0.00-10.9); Hematocrit 31.5 VOL% (42.0-52.0); Hemoglobin 10.5 GM/DL (14.0-18.0); Immature Granulocytes % 0.3 %; Immature Granulocytes Absolute 0.02 #; Lymphocytes # 1.1 10*3/uL (1.4-4.0); Lymphocytes % 15.7 % (21.2-54.2); Mean Corpuscular HGB Conc 33.3 GM/DL (32-36); Mean Corpuscular Volume 85.1 FL (87-102); Mean Platelet Volume 10.7 FL (9.6-12.0); Neutrophils % 71.9 % (38.7-73.9); Platelet Count 252 T/CUMM (130-400); Red Cell Distribution Width 16.4 % (9.3-17.3); White Blood Count 6.7 T/CUMM (4-12)
[2021-02-18 06:39] LABS: Calcium 8.6 MG/DL (8.5-10.1); Potassium 3.2 MMOL/L (3.5-5.1); Risk Ratio 1.88; VLDL Cholesterol 17.4 MG/DL
[2021-02-18] MEDS ORDERED: POTASSIUM CHLORIDE 20 MEQ TABLET PO ONE (07:45)
[2021-02-18 08:23] VITALS: BP 180/74
[2021-02-18] MEDS: METOPROLOL TARTRATE 25 MG TABLET PO SCH (08:46)
[2021-02-18] MEDS ORDERED: CLOPIDOGREL 75 MG TABLET PO SCH ×2 (09:00)
[2021-02-18] MEDS ORDERED: PANTOPRAZOLE 40 MG TABLET PO SCH ×2 (09:00)
[2021-02-18] MEDS ORDERED: amLODIPine 5 MG TABLET PO SCH (09:00)
[2021-02-18] MEDS ORDERED: FUROSEMIDE 40 MG TABLET PO SCH (09:00)
[2021-02-18] MEDS ORDERED: ATORVASTATIN 40 MG TABLET PO SCH (09:00)
[2021-02-18] MEDS ORDERED: ASPIRIN CHEW 81 MG TABLET PO SCH (09:00)
[2021-02-18] MEDS ORDERED: cilostazoL 100 MG TABLET PO SCH (09:00)
[2021-02-18] MEDS ORDERED: METOPROLOL TARTRATE 25 MG TABLET PO SCH (09:00)
[2021-02-18] MEDS ORDERED: ASPIRIN EC 81 MG TABLET PO SCH (09:00)
[2021-02-18] MEDS ORDERED: LOSARTAN 50 MG TABLET PO SCH (09:00)
[2021-02-18] MEDS ORDERED: allopurinoL 100 MG TABLET PO SCH (09:00)
== END 2021-02-18 11:00 | disposition home or self-care (01) ==
LOC: N.ED 11:26 → N.EDINP 11:26 → N.TELES 14:47
PROVIDERS: ADMIT Internal Medicine Cardiovascular Disease; ATTEND Internal Medicine Cardiovascular Disease
PROC: CLCCHCL (ICD-10-PCS; 2021-02-17 15:45)

== ENCOUNTER 2021-03-03 07:15 | Observation (INO) ==
[2021-03-03] MEDS ORDERED: NITROGLYCERIN SL 0.4 MG TABLET SL PRN (07:48)
[2021-03-03] MEDS ORDERED: NITROGLYCERIN 2% OINT 1 INCH/GM PACK TOP STA (07:48)
[2021-03-03 08:18] LABS: Albumin 3.6 G/DL (3.4-5.0); Bilirubin,Total 0.7 MG/DL (0.20-1.00); Calcium 9.5 MG/DL (8.5-10.1); Osmolality,Calculated 275.8 MOS/KG (273-304); Potassium 3.8 MMOL/L (3.5-5.1); Total Protein 7.3 G/DL (6.4-8.2)
[2021-03-03 08:23] LABS: Basophils % 0.4 % (0.0-0.8); Eosinophils # 0.3 10*3/uL (0.0-0.87); Eosinophils % 2.6 % (0.00-10.9); Hematocrit 30.5 VOL% (42.0-52.0); Hemoglobin 9.9 GM/DL (14.0-18.0); Immature Granulocytes % 0.4 %; Immature Granulocytes Absolute 0.04 #; Lymphocytes # 1.3 10*3/uL (1.4-4.0); Lymphocytes % 13.3 % (21.2-54.2); Mean Corpuscular HGB Conc 32.5 GM/DL (32-36); Mean Corpuscular Volume 83.6 FL (87-102); Mean Platelet Volume 10.5 FL (9.6-12.0); Monocytes % 6.8 % (1.7-12.7); Neutrophils % 76.5 % (38.7-73.9); Platelet Count 318 T/CUMM (130-400); Red Blood Count 3.65 MC/CUMM (3.8-5.5); Red Cell Distribution Width 14.6 % (9.3-17.3); White Blood Count 9.5 T/CUMM (4-12)
[2021-03-03] MEDS ORDERED: MAGNESIUM SULF RIDER 4 GM/100 ML PREMIX IV PRN (09:52)
[2021-03-03] MEDS ORDERED: diphenhydrAMINE CAP 25 MG CAPSULE PO PRN (09:52)
[2021-03-03] MEDS ORDERED: hydrALAZINE 20 MG/1 ML VIAL IV PRN (09:52)
[2021-03-03] MEDS ORDERED: ZALEPLON 5 MG CAPSULE PO PRN (09:52)
[2021-03-03] MEDS ORDERED: PROMETHAZINE 25 MG TABLET PO PRN (09:52)
[2021-03-03] MEDS ORDERED: guaiFENesin/DM ER 600-30 MG TABLET PO PRN (09:52)
[2021-03-03] MEDS ORDERED: BISACODYL 5 MG TABLET PO PRN (09:52)
[2021-03-03] MEDS ORDERED: ALUMINUM/MAGNES/SIMETH MAX STR 30 ML UDCUP PO PRN (09:52)
[2021-03-03] MEDS ORDERED: MAGNESIUM SULF RIDER 2 GM/50 ML PREMIX IV PRN (09:52)
[2021-03-03] MEDS ORDERED: POTASSIUM CHLORIDE 20 MEQ TABLET PO PRN (09:52)
[2021-03-03] MEDS ORDERED: ACETAMINOPHEN 325 MG TABLET PO PRN (09:52)
[2021-03-03] MEDS ORDERED: ONDANSETRON 4 MG/2 ML VIAL IV PRN (09:52)
[2021-03-03] MEDS ORDERED: DOCUSATE SODIUM 100 MG CAPSULE PO PRN (09:52)
[2021-03-03] MEDS ORDERED: ENOXAPARIN 40 MG/0.4 ML SYRINGE SUBCUT SCH (10:00)
[2021-03-03] MEDS: LOSARTAN 50 MG TABLET PO SCH (14:35)
[2021-03-03] MEDS: ASPIRIN EC 81 MG TABLET PO SCH (14:35)
[2021-03-03] MEDS: ATORVASTATIN 40 MG TABLET PO SCH (14:36)
[2021-03-03] MEDS: FUROSEMIDE 40 MG TABLET PO SCH (14:36)
[2021-03-03] MEDS: CLOPIDOGREL 75 MG TABLET PO SCH (14:37)
[2021-03-03] MEDS: amLODIPine 5 MG TABLET PO SCH (14:37)
[2021-03-03] MEDS: METOPROLOL TARTRATE 25 MG TABLET PO SCH ×2 (14:37→20:41)
[2021-03-03] MEDS: PANTOPRAZOLE 40 MG TABLET PO SCH ×2 (14:38→20:41)
[2021-03-03] MEDS: cilostazoL 100 MG TABLET PO SCH ×2 (14:38→20:41)
[2021-03-03] MEDS: allopurinoL 100 MG TABLET PO SCH (14:39)
[2021-03-03] MEDS: ISOSORBIDE MONONITRATE 30 MG TABLET PO SCH (15:21)
[2021-03-04 05:44] LABS: Basophils % 0.4 % (0.0-0.8); Eosinophils # 0.3 10*3/uL (0.0-0.87); Eosinophils % 4.1 % (0.00-10.9); Hematocrit 29.3 VOL% (42.0-52.0); Hemoglobin 9.7 GM/DL (14.0-18.0); Immature Granulocytes % 0.5 %; Immature Granulocytes Absolute 0.04 #; Lymphocytes # 1.5 10*3/uL (1.4-4.0); Lymphocytes % 19.3 % (21.2-54.2); Mean Corpuscular HGB Conc 33.1 GM/DL (32-36); Mean Platelet Volume 11.1 FL (9.6-12.0); Monocytes % 8.2 % (1.7-12.7); Neutrophils % 67.5 % (38.7-73.9); Platelet Count 286 T/CUMM (130-400); Red Blood Count 3.49 MC/CUMM (3.8-5.5); Red Cell Distribution Width 15.1 % (9.3-17.3); White Blood Count 7.9 T/CUMM (4-12)
[2021-03-04 05:54] LABS: Calcium 8.8 MG/DL (8.5-10.1); Osmolality,Calculated 281.7 MOS/KG (273-304); Potassium 3.5 MMOL/L (3.5-5.1)
[2021-03-04 07:54] VITALS: BP 155/41
[2021-03-04] MEDS: PANTOPRAZOLE 40 MG TABLET PO SCH (08:04)
[2021-03-04 09:00] LABS: Bacteria,Urine Many /HPF (Few); Bilirubin,Urine Negative (Negative); Blood, Urine Moderate mg/dL (Negative); Glucose,Urine (UA) Negative (Negative); Ketones,Urine Negative (Negative); Nitrite,Urine Negative (Negative); Protein,Urine 100 MG/DL; RBC,Urine 22 /HPF (0-4); Urine Appearance CLOUDY (Clear); Urine Color Yellow (Yellow); Urine Specific Gravity 1.008 (1.001-1.035); Urine Urobilinogen < 2.0 EU/DL (0.2-1.0)
[2021-03-04] MEDS: ASPIRIN EC 81 MG TABLET PO SCH (10:09)
[2021-03-04] MEDS: LOSARTAN 50 MG TABLET PO SCH (10:09)
[2021-03-04] MEDS: ISOSORBIDE MONONITRATE 30 MG TABLET PO SCH (10:10)
[2021-03-04] MEDS: ATORVASTATIN 40 MG TABLET PO SCH (10:10)
[2021-03-04] MEDS: amLODIPine 5 MG TABLET PO SCH (10:10)
[2021-03-04] MEDS: METOPROLOL TARTRATE 25 MG TABLET PO SCH (10:10)
[2021-03-04] MEDS: allopurinoL 100 MG TABLET PO SCH (10:10)
[2021-03-04] MEDS: CLOPIDOGREL 75 MG TABLET PO SCH (10:10)
[2021-03-04] MEDS: FUROSEMIDE 40 MG TABLET PO SCH (10:10)
[2021-03-04] MEDS: cilostazoL 100 MG TABLET PO SCH (10:11)
== END 2021-03-04 11:06 | disposition home or self-care (01) ==
LOC: N.EDINP 07:15 → N.ED 07:15 → N.EDINP 10:23 → N.TELEN 10:48
PROVIDERS: ADMIT Internal Medicine Cardiovascular Disease; ATTEND Internal Medicine Cardiovascular Disease

== ENCOUNTER 2021-05-17 15:51 | Observation (INO) ==
[2021-05-17 17:05] LABS: Basophils % 0.6 % (0.0-0.8); Eosinophils # 0.2 10*3/uL (0.0-0.87); Eosinophils % 3.5 % (0.00-10.9); Hematocrit 37.7 VOL% (42.0-52.0); Hemoglobin 11.8 GM/DL (14.0-18.0); Immature Granulocytes % 0.2 %; Immature Granulocytes Absolute 0.01 #; Lymphocytes # 1.8 10*3/uL (1.4-4.0); Mean Corpuscular HGB Conc 31.3 GM/DL (32-36); Mean Corpuscular Volume 85.9 FL (87-102); Mean Platelet Volume 11.6 FL (9.6-12.0); Monocytes % 9.9 % (1.7-12.7); Neutrophils % 57.8 % (38.7-73.9); Platelet Count 308 T/CUMM (130-400); Red Blood Count 4.39 MC/CUMM (3.8-5.5); Red Cell Distribution Width 15.3 % (9.3-17.3); White Blood Count 6.3 T/CUMM (4-12)
[2021-05-17 17:15] LABS: PT Patient Result 10.8 SECS (10.5-12.0); Partial Thromboplastin Time 30.2 SECS (23.8-32.1)
[2021-05-17] MEDS ORDERED: HEPARIN DRIP 25,000 UNITS/500 ML PREMIX IV SCH (17:30)
[2021-05-17 17:36] LABS: Alanine Aminotransferase 27 U/L (16-61); Albumin 4.3 G/DL (3.4-5.0); Alkaline Phosphatase 73 U/L (45-117); Aspartate Amino Transferase 18 U/L (0-37); Blood Urea Nitrogen 23 MG/DL (7-18); Calcium 9.9 MG/DL (8.5-10.1); Carbon Dioxide 26 MMOL/L (21-32); Estimated Glom Filtration Rate 50 ML/MIN; Glucose 112 MG/DL (74-106); Osmolality,Calculated 270.4 MOS/KG (273-304); Sodium 133 MMOL/L (136-145); Total Protein 8.1 G/DL (6.4-8.2)
[2021-05-17 17:42] LABS: Bilirubin,Urine Negative (Negative); Blood, Urine Negative (Negative); Glucose,Urine (UA) Negative (Negative); Hyaline Casts,Urine 22 /LPF (0-3); Ketones,Urine Negative (Negative); Mucus,Urine Occasional /LPF (Occasional); Nitrite,Urine Negative (Negative); Protein,Urine Negative; RBC,Urine 1 /HPF (0-4); Squamous Epithelial Cell,Urine Occasional /HPF (0-10); Urine Appearance CLEAR (Clear); Urine Color Yellow (Yellow); Urine Specific Gravity 1.012 (1.001-1.035)
[2021-05-17] MEDS ORDERED: DEXTROSE 50% 25 GM/50 ML VIAL IV PRN (17:55)
[2021-05-17] MEDS ORDERED: GLUCAGON 1 MG VIAL IM PRN (17:55)
[2021-05-17] MEDS ORDERED: ENOXAPARIN 40 MG/0.4 ML SYRINGE SUBCUT SCH (18:00)
[2021-05-17] MEDS ORDERED: COLCHICINE 0.6 MG CAPSULE PO PRN (18:19)
[2021-05-17 18:21] LABS: Barbiturates Screen,Urine Negative (Negative); Benzodiazepines Screen,Urine Positive (Negative); Cannabinoid Screen,Urine Negative (Negative); Opiate Screen,Urine Negative (Negative); Phencyclidine Screen,Urine Negative (Negative)
[2021-05-17] MEDS: ENOXAPARIN 100 MG/ML SYRINGE SUBCUT SCH (19:21)
[2021-05-17] MEDS: METOPROLOL TARTRATE 25 MG TABLET PO SCH (20:55)
[2021-05-17] MEDS: cilostazoL 100 MG TABLET PO SCH (20:55)
[2021-05-17] MEDS ORDERED: PANTOPRAZOLE 40 MG TABLET PO SCH (21:00)
[2021-05-18 04:54] LABS: Basophils % 0.7 % (0.0-0.8); Eosinophils # 0.3 10*3/uL (0.0-0.87); Eosinophils % 4.6 % (0.00-10.9); Hematocrit 32.6 VOL% (42.0-52.0); Hemoglobin 10.5 GM/DL (14.0-18.0); Immature Granulocytes % 0.2 %; Immature Granulocytes Absolute 0.01 #; Lymphocytes # 1.7 10*3/uL (1.4-4.0); Lymphocytes % 30.4 % (21.2-54.2); Mean Corpuscular HGB Conc 32.2 GM/DL (32-36); Mean Corpuscular Volume 84.2 FL (87-102); Mean Platelet Volume 11.2 FL (9.6-12.0); Neutrophils % 55.1 % (38.7-73.9); Platelet Count 252 T/CUMM (130-400); Red Blood Count 3.87 MC/CUMM (3.8-5.5); Red Cell Distribution Width 15.3 % (9.3-17.3); White Blood Count 5.4 T/CUMM (4-12)
[2021-05-18 05:22] LABS: Calcium 8.9 MG/DL (8.5-10.1); Osmolality,Calculated 277.8 MOS/KG (273-304); Risk Ratio 1.82; Thyroid Stimulating Hormone 20.5 uIU/ml (0.358-3.74); VLDL Cholesterol 10.6 MG/DL
[2021-05-18] MEDS: ENOXAPARIN 100 MG/ML SYRINGE SUBCUT SCH (08:40)
[2021-05-18] MEDS: cilostazoL 100 MG TABLET PO SCH (08:41)
[2021-05-18] MEDS: METOPROLOL TARTRATE 25 MG TABLET PO SCH (08:41)
[2021-05-18] MEDS ORDERED: allopurinoL 100 MG TABLET PO SCH (09:00)
[2021-05-18] MEDS ORDERED: PANTOPRAZOLE 40 MG TABLET PO SCH ×2 (09:00→21:00)
[2021-05-18] MEDS ORDERED: ASPIRIN EC 81 MG TABLET PO SCH (09:00)
[2021-05-18 09:05] LABS: Free T4 (Free Thyroxine) 0.78 NG/DL (0.76-1.46)
[2021-05-18] MEDS ORDERED: SODIUM CHLORIDE 0.9% 1,000 ML IV SCH (11:30)
[2021-05-18] MEDS ORDERED: CLOPIDOGREL 75 MG TABLET PO SCH (11:30)
[2021-05-18 20:11] VITALS: BP 141/41
[2021-05-18] MEDS ORDERED: ATORVASTATIN 40 MG TABLET PO SCH (21:00)
== END 2021-05-18 17:46 | disposition home or self-care (01) ==
LOC: N.EDINP 15:51 → N.ED 15:51 → SUATTDRO 17:55 → N.3E 05-18 01:25
PROVIDERS: ADMIT Internal Medicine; ATTEND Internal Medicine

== ENCOUNTER 2021-08-15 22:22 | Observation (INO) ==
[2021-08-15 23:23] LABS: INR 1.1; PT Patient Result 12.2 SECS (10.5-12.0)
[2021-08-15 23:27] LABS: Albumin 3.9 G/DL (3.4-5.0); Bilirubin,Total 1.2 MG/DL (0.20-1.00); Calcium 8.9 MG/DL (8.5-10.1); Osmolality,Calculated 279.4 MOS/KG (273-304); Total Protein 7.6 G/DL (6.4-8.2)
[2021-08-16 00:58] LABS: Partial Thromboplastin Time 43.8 SECS (23.8-32.1)
[2021-08-16] MEDS ORDERED: ONDANSETRON 4 MG/2 ML VIAL IV PRN (02:49)
[2021-08-16] MEDS ORDERED: NITROGLYCERIN SL 0.4 MG TABLET SL PRN (02:49)
[2021-08-16] MEDS ORDERED: MAGNESIUM SULF RIDER 4 GM/100 ML PREMIX IV PRN (02:49)
[2021-08-16] MEDS ORDERED: ACETAMINOPHEN 325 MG TABLET PO PRN (02:49)
[2021-08-16] MEDS ORDERED: POTASSIUM CHLORIDE RIDER 10 MEQ/100 ML PREMIX IV PRN (02:49)
[2021-08-16] MEDS ORDERED: MAGNESIUM SULF RIDER 2 GM/50 ML PREMIX IV PRN (02:49)
[2021-08-16] MEDS ORDERED: POTASSIUM CHLORIDE 20 MEQ TABLET PO PRN (02:49)
[2021-08-16] MEDS ORDERED: GLUCAGON 1 MG VIAL IM PRN (03:02)
[2021-08-16] MEDS ORDERED: DEXTROSE 10% 250 ML BAG IV PRN (03:02)
[2021-08-16 04:20] LABS: Partial Thromboplastin Time 35.9 SECS (23.8-32.1)
[2021-08-16 04:33] LABS: Risk Ratio 1.65; Thyroid Stimulating Hormone 32.5 uIU/ml (0.358-3.74); VLDL Cholesterol 18.4 MG/DL
[2021-08-16] MEDS ORDERED: ENOXAPARIN 80 MG/0.8 ML SYRINGE SUBCUT STA (04:52)
[2021-08-16 05:03] LABS: Basophils # 0.1 10*3/uL (0.0-0.2); Basophils % 0.8 % (0.0-0.8); Eosinophils # 0.5 10*3/uL (0.0-0.87); Eosinophils % 8.8 % (0.00-10.9); Hematocrit 34.6 VOL% (42.0-52.0); Hemoglobin 11.2 GM/DL (14.0-18.0); Immature Granulocytes % 0.2 %; Immature Granulocytes Absolute 0.01 #; Lymphocytes # 1.6 10*3/uL (1.4-4.0); Mean Corpuscular HGB Conc 32.4 GM/DL (32-36); Mean Corpuscular Volume 83.4 FL (87-102); Mean Platelet Volume 11.9 FL (9.6-12.0); Monocytes % 7.3 % (1.7-12.7); Neutrophils % 56.9 % (38.7-73.9); Platelet Count 190 T/CUMM (130-400); Red Blood Count 4.15 MC/CUMM (3.8-5.5); Red Cell Distribution Width 16.9 % (9.3-17.3)
[2021-08-16] MEDS ORDERED: CLOPIDOGREL 75 MG TABLET PO SCH (09:00)
[2021-08-16] MEDS ORDERED: amLODIPine 2.5 MG TABLET PO SCH (09:00)
[2021-08-16] MEDS: ISOSORBIDE MONONITRATE 30 MG TABLET PO SCH (09:00)
[2021-08-16] MEDS ORDERED: PANTOPRAZOLE 40 MG TABLET PO SCH (09:00)
[2021-08-16] MEDS ORDERED: carvediloL 6.25 MG TABLET PO SCH (09:00)
[2021-08-16] MEDS: APIXABAN 2.5 MG TABLET PO SCH ×2 (10:00→20:31)
[2021-08-16] MEDS ORDERED: amLODIPine 5 MG TABLET PO ONE (12:25)
[2021-08-16] MEDS ORDERED: HYOSCYAMINE 0.125 MG TABLET PO PRN (12:29)
[2021-08-16] MEDS ORDERED: DIAZEPAM 5 MG TABLET PO ONE (13:33)
[2021-08-16] MEDS ORDERED: diphenhydrAMINE CAP 25 MG CAPSULE PO ONE (13:33)
[2021-08-16] MEDS ORDERED: SODIUM CHLORIDE 0.9% 1,000 ML IV SCH (14:00)
[2021-08-16] MEDS ORDERED: LIDOCAINE 1% 20 ML VIAL ONE (14:03)
[2021-08-16] MEDS ORDERED: HYDROmorphone 2 MG/1 ML VIAL ONE (14:03)
[2021-08-16] MEDS ORDERED: HEPARIN/NACL 0.9% 2 UNITS/ML 2,000 UNIT/1,000 ML BAG IV ONE (14:03)
[2021-08-16] MEDS ORDERED: MIDAZOLAM 2 MG/2 ML VIAL ONE (14:04)
[2021-08-16] MEDS ORDERED: TIROFIBAN 5,000 MCG/100 ML PREMIX IV ONE (14:38)
[2021-08-16] MEDS ORDERED: HEPARIN 5,000 UNIT/1 ML VIAL ONE (14:40)
[2021-08-16] MEDS ORDERED: MORPHINE 10 MG/1 ML VIAL ONE (14:48)
[2021-08-16] MEDS ORDERED: LABETALOL 20 MG/4 ML SYRINGE IV ONE (14:48)
[2021-08-16] MEDS ORDERED: HEPARIN/NACL 0.9% 2 UNITS/ML 1,000 UNIT/500 ML BAG IV ONE (15:18)
[2021-08-16] MEDS ORDERED: NITROGLYCERIN DRIP 50 MG/250 ML BOTTLE IV ONE (16:34)
[2021-08-16] MEDS ORDERED: TICAGRELOR 90 MG TABLET ONE (16:36)
[2021-08-16] MEDS ORDERED: ASPIRIN CHEW 81 MG TABLET PO ONE (16:45)
[2021-08-16] MEDS: ASPIRIN EC 81 MG TABLET PO SCH (16:50)
[2021-08-16] MEDS: TICAGRELOR 90 MG TABLET PO SCH (20:31)
[2021-08-16] MEDS: METOPROLOL TARTRATE 25 MG TABLET PO SCH (20:31)
[2021-08-16] MEDS: PANTOPRAZOLE 40 MG TABLET PO SCH (20:50)
[2021-08-16] MEDS ORDERED: ATORVASTATIN 40 MG TABLET PO SCH (21:00)
[2021-08-17 06:41] LABS: Basophils % 0.4 % (0.0-0.8); Eosinophils # 0.4 10*3/uL (0.0-0.87); Eosinophils % 5.6 % (0.00-10.9); Hematocrit 32.9 VOL% (42.0-52.0); Hemoglobin 10.4 GM/DL (14.0-18.0); Immature Granulocytes % 0.3 %; Immature Granulocytes Absolute 0.02 #; Lymphocytes % 13.2 % (21.2-54.2); Mean Corpuscular HGB Conc 31.6 GM/DL (32-36); Mean Corpuscular Volume 84.8 FL (87-102); Mean Platelet Volume 11.5 FL (9.6-12.0); Monocytes % 8.2 % (1.7-12.7); Neutrophils % 72.3 % (38.7-73.9); Platelet Count 159 T/CUMM (130-400); Red Blood Count 3.88 MC/CUMM (3.8-5.5); Red Cell Distribution Width 16.8 % (9.3-17.3); White Blood Count 7.7 T/CUMM (4-12)
[2021-08-17 07:02] LABS: Blood Urea Nitrogen 9 MG/DL (7-18); Carbon Dioxide 24 MMOL/L (21-32); Estimated Glom Filtration Rate 92 ML/MIN; Glucose 100 MG/DL (74-106); Osmolality,Calculated 277.4 MOS/KG (273-304); Sodium 140 MMOL/L (136-145)
[2021-08-17 07:48] VITALS: BP 178/61
[2021-08-17] MEDS: PANTOPRAZOLE 40 MG TABLET PO SCH (08:34)
[2021-08-17] MEDS: METOPROLOL TARTRATE 25 MG TABLET PO SCH (08:34)
[2021-08-17] MEDS: ASPIRIN EC 81 MG TABLET PO SCH (08:34)
[2021-08-17] MEDS: TICAGRELOR 90 MG TABLET PO SCH (08:34)
[2021-08-17] MEDS: ISOSORBIDE MONONITRATE 30 MG TABLET PO SCH (08:34)
[2021-08-17 08:41] LABS: Free T4 (Free Thyroxine) 0.69 NG/DL (0.76-1.46)
[2021-08-17] MEDS ORDERED: amLODIPine 10 MG TABLET PO SCH (09:00)
[2021-08-17] MEDS ORDERED: LOSARTAN 50 MG TABLET PO SCH (09:00)
[2021-08-18] MEDS ORDERED: LEVOTHYROXINE 25 MCG TABLET PO SCH (08:11)
== END 2021-08-17 11:41 | disposition home or self-care (01) ==
LOC: N.EDINP 22:22 → N.ED 22:22 → N.TELES 08-16 12:10
PROVIDERS: ADMIT Internal Medicine; ATTEND Internal Medicine
PROC: CLCCHCL (ICD-10-PCS; 2021-08-16 13:45)

== ENCOUNTER 2022-02-14 12:40 | Inpatient (IN) ==
[2022-02-14] MEDS ORDERED: HYDROmorphone 1 MG/1 ML SYRINGE IV PRN (12:52)
[2022-02-14] MEDS ORDERED: diphenhydrAMINE 50 MG/1 ML VIAL IV PRN (12:52)
[2022-02-14] MEDS ORDERED: ONDANSETRON 4 MG/2 ML VIAL IV PRN (12:52)
[2022-02-14] MEDS ORDERED: PROMETHAZINE 25 MG/1 ML VIAL IM PRN (12:52)
[2022-02-14] MEDS ORDERED: CALCIUM CARBONATE CHEW 500 MG TABLET PO PRN (12:52)
[2022-02-14 13:57] LABS: Basophils % 0.4 % (0.0-0.8); Eosinophils # 0.2 10*3/uL (0.0-0.87); Eosinophils % 2.9 % (0.00-10.9); Hematocrit 30.2 VOL% (42.0-52.0); Hemoglobin 9.6 GM/DL (14.0-18.0); Immature Granulocytes % 2.3 %; Immature Granulocytes Absolute 0.19 #; Lymphocytes # 1.5 10*3/uL (1.4-4.0); Lymphocytes % 18.5 % (21.2-54.2); Mean Corpuscular HGB Conc 31.8 GM/DL (32-36); Mean Corpuscular Volume 88.8 FL (87-102); Mean Platelet Volume 10.9 FL (9.6-12.0); Monocytes % 12.2 % (1.7-12.7); Neutrophils % 63.7 % (38.7-73.9); Platelet Count 231 T/CUMM (130-400); Red Cell Distribution Width 16.1 % (9.3-17.3); White Blood Count 8.2 T/CUMM (4-12)
[2022-02-14 14:08] LABS: Calcium 9.7 MG/DL (8.5-10.1); Osmolality,Calculated 277.5 MOS/KG (273-304); Potassium 4.3 MMOL/L (3.5-5.1)
[2022-02-14] MEDS ORDERED: SODIUM CHLORIDE 0.9% 1,000 ML IV SCH (15:00)
[2022-02-14] MEDS: MEROPENEM 500 MG in SODIUM CHLORIDE 0.9% 100 ML IV SCH ×2 (16:04→21:26)
[2022-02-14] MEDS: ACETAMINOPHEN 325 MG TABLET PO SCH ×2 (16:06→21:30)
[2022-02-14] MEDS: SIMETHICONE CHEW 125 MG TABLET PO SCH ×2 (16:06→21:28)
[2022-02-14] MEDS: KETOROLAC 15 MG/1 ML VIAL IV SCH ×2 (16:21→21:32)
[2022-02-14] MEDS: ENOXAPARIN 40 MG/0.4 ML SYRINGE SUBCUT SCH (16:54)
[2022-02-14] MEDS: oxyCODONE/ACETAMINOPHEN 5-325 MG TABLET PO PRN (19:03)
[2022-02-14] MEDS: DOCUSATE SODIUM 100 MG CAPSULE PO SCH (21:28)
[2022-02-14] MEDS: LOSARTAN 50 MG TABLET PO SCH (21:29)
[2022-02-14] MEDS: carvediloL 25 MG TABLET PO SCH (21:31)
[2022-02-14] MEDS: PANTOPRAZOLE 40 MG TABLET PO SCH (21:31)
[2022-02-14] MEDS: TAMSULOSIN 0.4 MG CAPSULE PO SCH (21:31)
[2022-02-14] MEDS: ATORVASTATIN 40 MG TABLET PO SCH (21:31)
[2022-02-14] MEDS: TICAGRELOR 90 MG TABLET PO SCH (21:32)
[2022-02-15] MEDS: MEROPENEM 500 MG in SODIUM CHLORIDE 0.9% 100 ML IV SCH ×4 (03:01→21:19)
[2022-02-15] MEDS: ACETAMINOPHEN 325 MG TABLET PO SCH ×4 (03:01→21:20)
[2022-02-15] MEDS: KETOROLAC 15 MG/1 ML VIAL IV SCH ×4 (04:41→21:22)
[2022-02-15] MEDS: LEVOTHYROXINE 25 MCG TABLET PO SCH (05:45)
[2022-02-15 06:05] LABS: Basophils # 0.1 10*3/uL (0.0-0.2); Basophils % 0.9 % (0.0-0.8); Eosinophils # 0.3 10*3/uL (0.0-0.87); Eosinophils % 4.7 % (0.00-10.9); Hematocrit 31.7 VOL% (42.0-52.0); Hemoglobin 9.6 GM/DL (14.0-18.0); Immature Granulocytes % 4.3 %; Immature Granulocytes Absolute 0.23 #; Lymphocytes # 1.3 10*3/uL (1.4-4.0); Lymphocytes % 24.5 % (21.2-54.2); Mean Corpuscular HGB Conc 30.3 GM/DL (32-36); Mean Corpuscular Volume 93.5 FL (87-102); Mean Platelet Volume 12.1 FL (9.6-12.0); Monocytes # 0.7 10*3/uL (0.11-0.8); Monocytes % 12.4 % (1.7-12.7); Neutrophils % 53.2 % (38.7-73.9); Platelet Count 145 T/CUMM (130-400); Red Blood Count 3.39 MC/CUMM (3.8-5.5); White Blood Count 5.3 T/CUMM (4-12)
[2022-02-15 06:42] LABS: Calcium 8.8 MG/DL (8.5-10.1); Osmolality,Calculated 271.1 MOS/KG (273-304); Potassium 4.3 MMOL/L (3.5-5.1)
[2022-02-15] MEDS: amLODIPine 10 MG TABLET PO SCH (08:41)
[2022-02-15] MEDS: ASPIRIN CHEW 81 MG TABLET PO SCH (08:41)
[2022-02-15] MEDS: carvediloL 25 MG TABLET PO SCH ×2 (08:41→21:21)
[2022-02-15] MEDS: DOCUSATE SODIUM 100 MG CAPSULE PO SCH ×2 (08:41→21:22)
[2022-02-15] MEDS: TICAGRELOR 90 MG TABLET PO SCH ×2 (08:41→21:21)
[2022-02-15] MEDS: LOSARTAN 50 MG TABLET PO SCH ×2 (08:42→21:23)
[2022-02-15] MEDS: PANTOPRAZOLE 40 MG TABLET PO SCH ×2 (08:42→21:21)
[2022-02-15] MEDS: SIMETHICONE CHEW 125 MG TABLET PO SCH ×4 (08:42→21:20)
[2022-02-15] MEDS: TAMSULOSIN 0.4 MG CAPSULE PO SCH ×2 (08:42→21:23)
[2022-02-15] MEDS: FINASTERIDE 5 MG TABLET PO SCH (08:42)
[2022-02-15] MEDS: ENOXAPARIN 40 MG/0.4 ML SYRINGE SUBCUT SCH (16:23)
[2022-02-15] MEDS: ATORVASTATIN 40 MG TABLET PO SCH (21:22)
[2022-02-15] MEDS: oxyCODONE/ACETAMINOPHEN 5-325 MG TABLET PO PRN (22:06)
[2022-02-16] MEDS: MEROPENEM 500 MG in SODIUM CHLORIDE 0.9% 100 ML IV SCH ×3 (03:31→12:26)
[2022-02-16] MEDS: ACETAMINOPHEN 325 MG TABLET PO SCH ×2 (03:32→09:17)
[2022-02-16] MEDS: KETOROLAC 15 MG/1 ML VIAL IV SCH ×2 (03:32→09:16)
[2022-02-16 05:37] LABS: Basophils % 0.6 % (0.0-0.8); Eosinophils # 0.3 10*3/uL (0.0-0.87); Eosinophils % 4.8 % (0.00-10.9); Hematocrit 27.5 VOL% (42.0-52.0); Hemoglobin 8.7 GM/DL (14.0-18.0); Immature Granulocytes % 2.8 %; Immature Granulocytes Absolute 0.19 #; Lymphocytes # 1.1 10*3/uL (1.4-4.0); Lymphocytes % 15.8 % (21.2-54.2); Mean Corpuscular HGB Conc 31.6 GM/DL (32-36); Mean Corpuscular Volume 88.1 FL (87-102); Mean Platelet Volume 10.7 FL (9.6-12.0); Monocytes # 0.6 10*3/uL (0.11-0.8); Monocytes % 8.5 % (1.7-12.7); Neutrophils % 67.5 % (38.7-73.9); Platelet Count 226 T/CUMM (130-400); Red Blood Count 3.12 MC/CUMM (3.8-5.5); Red Cell Distribution Width 15.9 % (9.3-17.3); White Blood Count 6.7 T/CUMM (4-12)
[2022-02-16 05:55] LABS: Calcium 8.1 MG/DL (8.5-10.1); Potassium 3.7 MMOL/L (3.5-5.1)
[2022-02-16] MEDS: LEVOTHYROXINE 25 MCG TABLET PO SCH (06:01)
[2022-02-16] MEDS: LOSARTAN 50 MG TABLET PO SCH (09:17)
[2022-02-16] MEDS: FINASTERIDE 5 MG TABLET PO SCH (09:17)
[2022-02-16] MEDS: ASPIRIN CHEW 81 MG TABLET PO SCH (09:17)
[2022-02-16] MEDS: TAMSULOSIN 0.4 MG CAPSULE PO SCH (09:17)
[2022-02-16] MEDS: TICAGRELOR 90 MG TABLET PO SCH (09:18)
[2022-02-16] MEDS: amLODIPine 10 MG TABLET PO SCH (09:18)
[2022-02-16] MEDS: DOCUSATE SODIUM 100 MG CAPSULE PO SCH (09:18)
[2022-02-16] MEDS: PANTOPRAZOLE 40 MG TABLET PO SCH (09:18)
[2022-02-16] MEDS: SIMETHICONE CHEW 125 MG TABLET PO SCH (09:18)
[2022-02-16] MEDS: carvediloL 25 MG TABLET PO SCH (09:19)
[2022-02-16 12:29] VITALS: BP 155/46
== END 2022-02-16 13:32 | disposition home or self-care (01) | DRG 728 ==
LOC: N.5E 13:10
PROVIDERS: ADMIT Surgery; ATTEND Surgery

== ENCOUNTER 2022-06-25 11:38 | Inpatient (IN) ==
[2022-06-25 14:03] LABS: Basophils % 0.3 % (0.0-0.8); Eosinophils # 0.4 10*3/uL (0.0-0.87); Eosinophils % 3.7 % (0.00-10.9); Hematocrit 35.1 VOL% (42.0-52.0); Hemoglobin 10.9 GM/DL (14.0-18.0); Immature Granulocytes % 0.5 %; Immature Granulocytes Absolute 0.05 #; Lymphocytes # 1.9 10*3/uL (1.4-4.0); Lymphocytes % 18.2 % (21.2-54.2); Mean Corpuscular HGB Conc 31.1 GM/DL (32-36); Mean Corpuscular Volume 87.3 FL (87-102); Mean Platelet Volume 12.2 FL (9.6-12.0); Monocytes # 0.9 10*3/uL (0.11-0.8); Monocytes % 8.3 % (1.7-12.7); Platelet Count 168 T/CUMM (130-400); Red Blood Count 4.02 MC/CUMM (3.8-5.5); Red Cell Distribution Width 16.7 % (9.3-17.3); White Blood Count 10.6 T/CUMM (4-12)
[2022-06-25] MEDS ORDERED: MORPHINE 2 MG/1 ML SYRINGE ONE (14:55)
[2022-06-25] MEDS ORDERED: MORPHINE 2 MG/1 ML SYRINGE IM STA (15:04)
[2022-06-25] MEDS ORDERED: MORPHINE 10 MG/1 ML VIAL IM STA (16:17)
[2022-06-25] MEDS ORDERED: PROMETHAZINE 25 MG/1 ML VIAL IM STA (16:23)
[2022-06-25] MEDS ORDERED: MORPHINE 10 MG/1 ML VIAL IV STA (16:23)
[2022-06-25] MEDS ORDERED: HYDROmorphone 1 MG/1 ML SYRINGE IV STA (17:43)
[2022-06-25] MEDS ORDERED: ONDANSETRON 4 MG/2 ML VIAL ONE (18:04)
[2022-06-25] MEDS ORDERED: HEPARIN DRIP 25,000 UNITS/500 ML PREMIX IV SCH (19:00)
[2022-06-25] MEDS ORDERED: ONDANSETRON 4 MG/2 ML VIAL IV PRN (19:03)
[2022-06-25] MEDS ORDERED: hydrALAZINE 20 MG/1 ML VIAL IV PRN (19:03)
[2022-06-25] MEDS ORDERED: ACETAMINOPHEN 325 MG TABLET PO PRN (19:03)
[2022-06-25] MEDS ORDERED: DOCUSATE SODIUM 100 MG CAPSULE PO PRN (19:03)
[2022-06-25] MEDS: MORPHINE 2 MG/1 ML SYRINGE IV PRN ×2 (19:41→23:49)
[2022-06-25 19:57] LABS: PT Patient Result 10.9 SECS (10.1-12.1); Partial Thromboplastin Time 36.3 SECS (23.7-32.9)
[2022-06-25] MEDS: carvediloL 25 MG TABLET PO SCH (21:27)
[2022-06-25] MEDS: TAMSULOSIN 0.4 MG CAPSULE PO SCH (21:27)
[2022-06-25] MEDS: PANTOPRAZOLE 40 MG TABLET PO SCH (21:27)
[2022-06-26 05:30] LABS: Basophils % 0.2 % (0.0-0.8); Eosinophils # 0.2 10*3/uL (0.0-0.87); Eosinophils % 2.7 % (0.00-10.9); Hematocrit 32.2 VOL% (42.0-52.0); Hemoglobin 10.1 GM/DL (14.0-18.0); Immature Granulocytes % 0.4 %; Immature Granulocytes Absolute 0.03 #; Lymphocytes # 1.9 10*3/uL (1.4-4.0); Lymphocytes % 22.6 % (21.2-54.2); Mean Corpuscular HGB Conc 31.4 GM/DL (32-36); Mean Corpuscular Volume 88.2 FL (87-102); Monocytes # 1.1 10*3/uL (0.11-0.8); Monocytes % 12.5 % (1.7-12.7); Neutrophils % 61.6 % (38.7-73.9); Platelet Count 160 T/CUMM (130-400); Red Blood Count 3.65 MC/CUMM (3.8-5.5); Red Cell Distribution Width 16.6 % (9.3-17.3); White Blood Count 8.4 T/CUMM (4-12)
[2022-06-26 05:54] LABS: INR 1.1; PT Patient Result 11.9 SECS (10.1-12.1)
[2022-06-26 05:57] LABS: Calcium 8.8 MG/DL (8.5-10.1); Osmolality,Calculated 273.1 MOS/KG (273-304); Potassium 3.7 MMOL/L (3.5-5.1); Risk Ratio 1.41; VLDL Cholesterol 11.6 MG/DL
[2022-06-26 05:58] LABS: Partial Thromboplastin Time 165.3 SECS (23.7-32.9)
[2022-06-26] MEDS: MORPHINE 2 MG/1 ML SYRINGE IV PRN (07:55)
[2022-06-26] MEDS: TAMSULOSIN 0.4 MG CAPSULE PO SCH ×2 (09:57→21:03)
[2022-06-26] MEDS: ASPIRIN CHEW 81 MG TABLET PO SCH (09:57)
[2022-06-26] MEDS: PANTOPRAZOLE 40 MG TABLET PO SCH ×2 (09:57→21:03)
[2022-06-26] MEDS: carvediloL 25 MG TABLET PO SCH ×2 (09:57→17:22)
[2022-06-26] MEDS: FINASTERIDE 5 MG TABLET PO SCH (09:57)
[2022-06-26] MEDS: ATORVASTATIN 80 MG TABLET PO SCH (09:57)
[2022-06-26] MEDS: MELOXICAM 7.5 MG TABLET PO SCH (11:59)
[2022-06-26] MEDS: KETOROLAC 30 MG/1 ML VIAL IV SCH ×2 (12:03→23:14)
[2022-06-27 04:43] LABS: Basophils % 0.3 % (0.0-0.8); Eosinophils # 0.3 10*3/uL (0.0-0.87); Eosinophils % 4.6 % (0.00-10.9); Hematocrit 31.7 VOL% (42.0-52.0); Hemoglobin 10.1 GM/DL (14.0-18.0); Immature Granulocytes % 0.3 %; Immature Granulocytes Absolute 0.02 #; Lymphocytes # 1.7 10*3/uL (1.4-4.0); Lymphocytes % 24.3 % (21.2-54.2); Mean Corpuscular HGB Conc 31.9 GM/DL (32-36); Mean Corpuscular Volume 86.8 FL (87-102); Mean Platelet Volume 12.1 FL (9.6-12.0); Monocytes # 0.8 10*3/uL (0.11-0.8); Monocytes % 11.6 % (1.7-12.7); Neutrophils % 58.9 % (38.7-73.9); Platelet Count 152 T/CUMM (130-400); Red Blood Count 3.65 MC/CUMM (3.8-5.5); Red Cell Distribution Width 16.2 % (9.3-17.3)
[2022-06-27 05:22] LABS: Calcium 8.8 MG/DL (8.5-10.1); Potassium 3.7 MMOL/L (3.5-5.1)
[2022-06-27 06:09] LABS: Sedimentation Rate-Westergren 62 MM/HR (0-20)
[2022-06-27] MEDS: ATORVASTATIN 80 MG TABLET PO SCH (09:25)
[2022-06-27] MEDS: MELOXICAM 7.5 MG TABLET PO SCH (09:25)
[2022-06-27] MEDS: PANTOPRAZOLE 40 MG TABLET PO SCH (09:25)
[2022-06-27] MEDS: TAMSULOSIN 0.4 MG CAPSULE PO SCH (09:25)
[2022-06-27] MEDS: FINASTERIDE 5 MG TABLET PO SCH (09:25)
[2022-06-27] MEDS: carvediloL 25 MG TABLET PO SCH (09:25)
[2022-06-27] MEDS: ASPIRIN CHEW 81 MG TABLET PO SCH (09:25)
[2022-06-27] MEDS: KETOROLAC 30 MG/1 ML VIAL IV SCH (10:04)
[2022-06-27 13:43] VITALS: BP 122/55
== END 2022-06-27 15:43 | disposition home or self-care (01) | DRG 554 ==
LOC: N.ED 11:38 → SUATTDRO 18:49 → N.EDINP 18:49 → N.TELEN 06-26 03:38
PROVIDERS: ADMIT Internal Medicine Geriatric Medicine; ATTEND Internal Medicine